=== PATIENT | male | born 1945 | race African-American/Black ===

== ENCOUNTER 2017-01-04 08:00 | Day surgery (SDC) | payer OTHER ==
[2017-01-04] MEDS ORDERED: TETRACAINE 0.5% OPHTH 1 DOSE AFFEYE ONE ×5 (08:32→10:52)
[2017-01-04] MEDS ORDERED: VIGAMOX 0.5% OPHTH 1 DOSE AFFEYE ONE ×5 (08:33→11:08)
[2017-01-04] MEDS ORDERED: PROLENSA OPHTH 1 DOSE AFFEYE ONE (08:44)
[2017-01-04] MEDS ORDERED: ALPHAGAN-P OPHTH 1 DOSE AFFEYE ONE (08:45)
[2017-01-04] MEDS ORDERED: NS 500 ML IV 500 ML IV ONE (08:45)
[2017-01-04] MEDS ORDERED: AK-DILATE 2.5% OPHTH 1 DOSE OP ONE ×5 (08:46→08:50)
[2017-01-04] MEDS ORDERED: CYCLOGYL 1% OPHTH 1 DOSE OP ONE ×5 (08:46→08:50)
[2017-01-04] MEDS ORDERED: MYDRIACIL OPHTH 1 DOSE AFFEYE ONE ×5 (08:46→08:52)
[2017-01-04] MEDS ORDERED: KENALOG INJ 40 MG IM ONE (10:41)
[2017-01-04] MEDS ORDERED: BETADINE OPHTH SOLN 5% EACHEYE ONE (10:42)
[2017-01-04] MEDS ORDERED: ADRENALINE CHL INJ IJ ONE ×3 (10:45→10:52)
[2017-01-04] MEDS ORDERED: XYLOCAINE-MPF 1% IJ ONE ×3 (10:45→10:52)
[2017-01-04] MEDS ORDERED: DUOVISC IO ONE ×3 (10:46→10:52)
[2017-01-04] MEDS ORDERED: BSS OPHTH (PLAIN) 500 ML with VANCOMYCIN HCL 500 MG VIAL 25 MG, ADRENALINE CHL INJ 1 MG IR ONE ×3 (10:46)
[2017-01-04 11:37] VITALS: BP 117/64
== END 2017-01-04 11:30 | disposition home or self-care (01) ==
LOC: SURG1 08:00
PROVIDERS: ATTEND Ophthalmology
PROC: 08DJ3ZZ Extraction of Right Lens, Percutaneous Approach (ICD-10-PCS; principal; 2017-01-04 12:45)
PROC: 08RJ3JZ Replacement of Right Lens with Synthetic Substitute, Percutaneous Approach (ICD-10-PCS; principal; 2017-01-04 12:45)
PROC: 08U007Z Supplement of Right Eye with Autologous Tissue Substitute, Open Approach (ICD-10-PCS; principal; 2017-01-04 12:45)
PROC: 08BSXZX Excision of Right Conjunctiva, External Approach, Diagnostic (ICD-10-PCS; principal; 2017-01-04 12:45)
DX: H11.001 Unspecified pterygium of right eye (principal); H25.11 Age-related nuclear cataract, right eye; H25.011 Cortical age-related cataract, right eye
CPT/HCPCS: 99100; A4217; J0170; J3301; J3370

== ENCOUNTER 2017-01-18 09:03 | Day surgery (SDC) | payer OTHER ==
[2017-01-18] MEDS ORDERED: DUREZOL OPHTH 1 DOSE AFFEYE ONE (09:40)
[2017-01-18] MEDS ORDERED: TETRACAINE 0.5% OPHTH 1 DOSE AFFEYE ONE ×2 (09:41→13:01)
[2017-01-18] MEDS ORDERED: VIGAMOX 0.5% OPHTH 1 DOSE AFFEYE ONE ×5 (09:42→13:22)
[2017-01-18] MEDS ORDERED: NS 500 ML IV 500 ML IV ONE (09:50)
[2017-01-18] MEDS ORDERED: PROLENSA OPHTH 1 DOSE AFFEYE ONE (09:53)
[2017-01-18] MEDS ORDERED: ALPHAGAN-P OPHTH 1 DOSE AFFEYE ONE (09:54)
[2017-01-18] MEDS ORDERED: VISINE-A OPHTH 1 DOSE AFFEYE ONE (09:55)
[2017-01-18] MEDS ORDERED: CYCLOGYL 1% OPHTH 1 DOSE OP ONE ×3 (09:56→10:00)
[2017-01-18] MEDS ORDERED: MYDRIACIL OPHTH 1 DOSE AFFEYE ONE ×3 (09:56→10:00)
[2017-01-18] MEDS ORDERED: AK-DILATE 2.5% OPHTH 1 DOSE OP ONE ×3 (09:56→10:00)
[2017-01-18] MEDS ORDERED: NS 1000 ML 1,000 ML ONE (12:15)
[2017-01-18] MEDS ORDERED: BETADINE OPHTH SOLN 5% EACHEYE ONE (13:01)
[2017-01-18] MEDS ORDERED: XYLOCAINE-MPF 1% IJ ONE (13:08)
[2017-01-18] MEDS ORDERED: DUOVISC IO ONE (13:08)
[2017-01-18] MEDS ORDERED: ADRENALINE CHL INJ IJ ONE (13:08)
[2017-01-18] MEDS ORDERED: BSS OPHTH (PLAIN) 500 ML with VANCOMYCIN HCL 500 MG VIAL 25 MG, ADRENALINE CHL INJ 1 MG IR ONE ×3 (13:08)
[2017-01-18 14:55] VITALS: BP 151/79
[2017-01-18] MEDS ORDERED: DIPRIVAN VIAL ONE (15:38)
== END 2017-01-18 13:45 | disposition home or self-care (01) ==
LOC: SURG1 09:03
PROVIDERS: ATTEND Ophthalmology
PROC: 08RK3JZ Replacement of Left Lens with Synthetic Substitute, Percutaneous Approach (ICD-10-PCS; principal; 2017-01-18 16:30)
PROC: 08DK3ZZ Extraction of Left Lens, Percutaneous Approach (ICD-10-PCS; principal; 2017-01-18 16:30)
DX: H25.12 Age-related nuclear cataract, left eye (principal); H25.012 Cortical age-related cataract, left eye
CPT/HCPCS: 99100; A4217; J0170; J3370; J3490

== ENCOUNTER 2020-02-03 08:24 | Inpatient (IN) ==
[2020-02-03 08:44] VITALS: BMI 25.4
--- NOTE | 2020-02-03 09:34 | DR.ABDMALE ---
HPI Time seen Time Seen by Provider: 02/03/20 09:33 PCP Primary Care Physician: RAUL Complaint Chief Complaint:: PT STATES HE WOKE UP YESTERDAY MORNING WITH ABD PAIN. (C/O PAIN TO MID ABD) PT IS ACTIVELY VOMITTING SMALL AMT OF THICK YELLOW SECRETIONS. COVID-19 Coronavirus risk:travel/contact w/high risk person: No Has patient experienced Coronavirus symptoms: No Mode of arrival Mode of Arrival: Ambulatory Timing Onset of Chief Complaint: 02/02/20 PMH PMH Past Medical History: Yes Past Medical History: CVA Past Surgical History: No Family History History of Family Medical Conditions: Yes Family Medical History: Cancer Social History Does patient currently use any type of tobacco product: Yes Have you used tobacco products in the last 12 months: Yes Type of Tobacco Use: Cigarettes Does any household member use tobacco: No Alcohol Use: None Do you use any recreational Drugs:: No Lives With: Spouse Lives Where: Home Travel Risk Coronavirus risk:travel/contact w/high risk person: No Has patient experienced Coronavirus symptoms: No Infectious screening In the last 2 months have you had wt loss of >10#?: NO Have you had fever, night sweats or hemotysis?: No Have you traveled outside the country in the last 6 months?: No Isolation: Standard PE Vital Signs Vital Signs: Temp Pulse Resp BP Pulse Ox 02/03/20 13:45 117 H 93 L 02/03/20 13:30 121 H 93 L 02/03/20 13:15 118 H 93 L 02/03/20 13:01 118 H 93 L 02/03/20 12:34 154/89 02/03/20 12:00 121/67 02/03/20 11:30 129/64 02/03/20 10:16 18 02/03/20 08:35 98.3 F 110 H 20 125/71 97 01/18/17 13:40 151/79 ROR Labs Reviewed Result Diagrams: 02/03/20 10:05 02/03/20 10:05 Laboratory: WBC 11.6 X10^3/uL (3.6-10.0) H 02/03/20 10:05 RBC 3.83 X10^6/uL (4.7-6.0) L 02/03/20 10:05 Hgb 11.8 g/dL (13.5-18.0) L 02/03/20 10:05 Hct 36.0 % (42.0-54.0) L 02/03/20 10:05 MCV 94.0 fL (80.0-100.0) 02/03/20 10:05 MCH 30.8 pg (27.0-34.0) 02/03/20 10:05 MCHC 32.7 g/dL (33.0-35.0) L 02/03/20 10:05 RDW 14.5 % (11.6-16.5) 02/03/20 10:05 Plt Count 244 X10^3/uL (150.0-450.0) 02/03/20 10:05 MPV 8.3 fL (7.4-11.0) 02/03/20 10:05 Neut % (Auto) 88.3 % (42.0-75.0) H 02/03/20 10:05 Lymph % (Auto) 6.5 % (21.0-51.0) L 02/03/20 10:05 [place] % (Auto) 4.4 % (0.0-13.0) 02/03/20 10:05 Eos % (Auto) 0.5 % (0.9-2.9) L 02/03/20 10:05 Baso % (Auto) 0.3 % (0.2-1.0) 02/03/20 10:05 Neut # (Auto) 10.3 x10^3/uL (2.2-4.8) H 02/03/20 10:05 Lymph # (Auto) 0.8 X10^3/uL (1.3-2.9) L 02/03/20 10:05 [place] # (Auto) 0.5 x10^3/uL (0.3-0.8) 02/03/20 10:05 Eos # (Auto) 0.1 x10^3/uL (0.0-0.2) 02/03/20 10:05 Baso # (Auto) 0.0 X10^3/uL (0.0-0.1) 02/03/20 10:05 Absolute Nucleated RBC 0.0 /100WBC 02/03/20 10:05 Sodium 139 mmol/L (136-145) 02/03/20 10:05 Corrected Sodium 140 mmol/L (136-145) 02/03/20 10:05 Potassium 4.7 mmol/L (3.5-5.1) 02/03/20 10:05 Chloride 105 mmol/L (98-107) 02/03/20 10:05 Carbon Dioxide 25.2 mmol/L (21-32) 02/03/20 10:05 BUN 20 mg/dL (7-18) H 02/03/20 10:05 Creatinine 2.15 mg/dL (0.70-1.30) H 02/03/20 10:05 Est GFR (MDRD) Af Amer 39 (>60) L 02/03/20 10:05 Est GFR (MDRD) Non-Af 32 (>60) L 02/03/20 10:05 Glucose 132 mg/dL (65-99) H 02/03/20 10:05 Calcium 9.0 mg/dL (8.5-10.1) 02/03/20 10:05 Corrected Calcium 9.8 mg/dL (8.5-10.1) 02/03/20 10:05 Total Bilirubin 0.30 mg/dL (0.2-1.0) 02/03/20 10:05 AST 19 Units/L (15-37) 02/03/20 10:05 ALT 14 Units/L (12-78) 02/03/20 10:05 Alkaline Phosphatase 88 Units/L (46-116) 02/03/20 10:05 Total Protein 8.7 g/dL (6.4-8.2) H 02/03/20 10:05 Albumin 3.0 g/dL (3.4-5.0) L 02/03/20 10:05 Globulin 5.7 g/dL (2.5-4.5) H 02/03/20 10:05 Albumin/Globulin Ratio 0.5 Ratio (1.1-2.1) L 02/03/20 10:05 Amylase 101 Units/L (25-115) 02/03/20 10:05 Lipase 76 Units/L (73-393) 02/03/20 10:05 SARS-CoV-2 (PCR) Negative (NEGATIVE) 02/03/20 13:16 Opioid Opioid Risk Tool Age (Iker box if 16-45): No History of Preadolescent Sexual Abuse: No Total: 0 Total Score Risk Category: Low Risk Copyright: Cesar BUCHANAN predicting aberrant behaviors
[2020-02-03] MEDS ORDERED: NS 1000 ML 1,000 ML IV ONE (09:55)
[2020-02-03] MEDS ORDERED: DEMEROL INJ IVP ONE (09:59)
[2020-02-03] MEDS ORDERED: ZOFRAN INJ 4 MG VIAL IVP ONE (09:59)
[2020-02-03] MEDS ORDERED: NS 1000 ML 1,000 ML ONE ×3 (10:06→18:25)
[2020-02-03] MEDS ORDERED: DEMEROL INJ ONE (10:06)
[2020-02-03] MEDS ORDERED: ZOFRAN INJ 4 MG VIAL ONE ×2 (10:06→18:40)
[2020-02-03 10:18] LABS: BASOPHILS % (AUTO) 0.3 % (0.2-1.0); EOSINOPHILS # (AUTO) 0.1 x10^3/uL (0.0-0.2); EOSINOPHILS % (AUTO) 0.5 % (0.9-2.9); HEMOGLOBIN 11.8 g/dL (13.5-18.0); LYMPHOCYTES # (AUTO) 0.8 X10^3/uL (1.3-2.9); LYMPHOCYTES % (AUTO) 6.5 % (21.0-51.0); MEAN CORPUSCULAR HEMOGLOBIN 30.8 pg (27.0-34.0); MEAN CORPUSCULAR HGB CONC 32.7 g/dL (33.0-35.0); MEAN PLATELET VOLUME 8.3 fL (7.4-11.0); MONOCYTES # (AUTO) 0.5 x10^3/uL (0.3-0.8); MONOCYTES % (AUTO) 4.4 % (0.0-13.0); NEUTROPHILS # (AUTO) 10.3 x10^3/uL (2.2-4.8); NEUTROPHILS % (AUTO) 88.3 % (42.0-75.0); PLATELET COUNT 244 X10^3/uL (150.0-450.0); RED BLOOD COUNT 3.83 X10^6/uL (4.7-6.0); RED CELL DISTRIBUTION WIDTH 14.5 % (11.6-16.5); WHITE BLOOD COUNT 11.6 X10^3/uL (3.6-10.0)
[2020-02-03 10:30] LABS: CARBON DIOXIDE 25.2 mmol/L (21-32); COR CA(FOR HYPOALB) 9.8 mg/dL (8.5-10.1); CREATININE 2.15 mg/dL (0.70-1.30); TOTAL PROTEIN 8.7 g/dL (6.4-8.2)
--- NOTE | 2020-02-03 12:45 | CT ---
ABDOMEN/PELVIS W/O CONHISTORY: RLQ abdominal painComparison:NoneTechnique:Multiple non contrast axial images of the abdomen and pelvis were obtained from the lung bases to the pubic symphysis. Oral contrast was given . Dose reduction techniques including Automated Exposure Control (AEC) and adjustment of mA and kV were utlized.Findings:The sensitivity for focal lesion detection within the solid abdominal viscera is diminished without the use of IV contrast.The heart is normal in size. There is no pericardial effusion. Fibrotic appearance of the lung bases.Liver and spleen are normal in size, contour. No focal lesions. No ductal dilitation. Gallbladder present. Gallbladder stone in the gallbladder neck. No evidence of inflammation. The pancreas is unremarkable. Adrenal glands are normal. Kidneys are without hydronephrosis or nephrolithiasis.No bowel obstruction or inflammation. The appendix is dilated up to 10 mm in there is some internal calcification. There is surrounding periappendiceal inflammation. No free air. No abnormal appearing mesenteric or retroperitoneal lymph nodes. . No free fluid or fluid collections.The bladder is normal in appearance. Prostate measures 5.3 cm. No free fluid or abnormal pelvic lymph nodes.No aggressive osseous lesions.IMPRESSION:1. Findings of acute appendicitis without perforation.Electronically signed by: DARWIN NIEVES (Feb 03, 2020 12:44:14)
[2020-02-03] MEDS ORDERED: FLAGYL IV PREMIX 500 MG BAG 500 MG/100 ML BAG IV ONE (14:09)
[2020-02-03] MEDS: FLAGYL IV PREMIX 500 MG BAG 500 MG/100 ML BAG IV SCH ×2 (14:17→21:50)
[2020-02-03] MEDS ORDERED: NS IRRIGATION* 3,000 ML ONE (14:22)
[2020-02-03] MEDS: ZOSYN VIAL 3.375 GRAMS 3.375 G in NS 100 ML IV + SPIKE MINIBAG* 100 ML IV SCH ×2 (16:12→21:51)
[2020-02-03 16:57] LABS: BILIRUBIN,URINE NEGATIVE (NEGATIVE); BLOOD/HEMOGLOBIN,URINE 3+ (NEGATIVE); GLUCOSE, URINE NEGATIVE (NEGATIVE); KETONES,URINE NEGATIVE (NEGATIVE); LEUKOCYTE ESTERASE ,URINE NEGATIVE (NEGATIVE); NITRITES,URINE NEGATIVE (NEGATIVE); PROTEIN,URINE 2+ (NEGATIVE); UROBILINOGEN,URINE NORMAL (NORMAL)
[2020-02-03 17:16] LABS: APPEARANCE,URINE CLEAR (CLEAR); BACTERIA,URINE NEGATIVE /HPF (NEGATIVE); COLOR,URINE YELLOW (YELLOW); RBC,URINE 0-2 /HPF (0-3); SQUAMOUS EPITHELIAL CELL,UR RARE /HPF (NEGATIVE)
--- NOTE | 2020-02-03 18:20 | RAD ---
HISTORYright abdomen painSTUDYCHEST, 1 VIEWCOMPARISONNoneFINDINGSThe trachea is midline. The cardiac silhouette is unremarkable. Bilateral airspace opacities. The bony thorax is unremarkable.IMPRESSIONBilateral airspace opacities which may reflect congestion or pneumonia.Electronically signed by: BLANCA HEBERT (Feb 03, 2020 18:18:18)
[2020-02-03] MEDS ORDERED: FENTANYL INJ 250 mcg ONE (18:23)
[2020-02-03] MEDS ORDERED: NORCURON INJ 10 MG VIAL ONE (18:40)
[2020-02-03] MEDS ORDERED: NEOSTIGMINE INJ ONE (18:40)
[2020-02-03] MEDS ORDERED: LTA KIT LIDOCAINE 4% ONE (18:40)
[2020-02-03] MEDS ORDERED: ROBINUL ONE (18:40)
[2020-02-03] MEDS ORDERED: VERSED ONE (18:40)
[2020-02-03] MEDS ORDERED: AMIDATE INJ 40 MG VIAL ONE (18:40)
[2020-02-03] MEDS ORDERED: XYLOCAINE 2 % (PLAIN) ONE (18:40)
[2020-02-03] MEDS ORDERED: DROPERIDOL ONE (18:40)
[2020-02-03] MEDS ORDERED: DECADRON INJ ONE (18:40)
[2020-02-03] MEDS ORDERED: QUELICIN (OR ANECTINE) ONE (18:40)
[2020-02-03] MEDS ORDERED: BACTROBAN TOPICAL OINT ONE (19:33)
[2020-02-03] MEDS ORDERED: DILAUDID INJ IVP PRN ×2 (20:01→20:16)
[2020-02-03] MEDS ORDERED: ZOFRAN INJ 4 MG VIAL IVP PRN (20:16)
[2020-02-03] MEDS ORDERED: BENADRYL INJ 50 MG VIAL IVP PRN (20:16)
[2020-02-03] MEDS ORDERED: REGLAN INJ 10 MG VIAL IVP PRN (20:16)
[2020-02-03] MEDS ORDERED: PHENERGAN INJ 25 MG IM PRN (20:16)
[2020-02-03] MEDS ORDERED: D5 1/2 NS 1000 ML 1,000 ML IV ONE (20:55)
[2020-02-03] MEDS: D5 1/2 NS 1000 ML 1,000 ML IV SCH (20:57)
[2020-02-03] MEDS: NEURONTIN CAP 100 MG PO SCH (21:50)
[2020-02-03] MEDS: ZESTRIL TAB 20 MG PO SCH (21:50)
[2020-02-03] MEDS: ZOCOR TAB 40 MG PO SCH (21:50)
[2020-02-04] MEDS: ZOFRAN INJ 4 MG VIAL IVP PRN ×2 (02:58→21:29)
[2020-02-04] MEDS: MORPHINE SULFATE INJ 2 MG INJ IVP PRN ×2 (02:59→21:35)
[2020-02-04] MEDS: D5 1/2 NS 1000 ML 1,000 ML IV SCH ×4 (04:30→22:23)
[2020-02-04] MEDS: FLAGYL IV PREMIX 500 MG BAG 500 MG/100 ML BAG IV SCH ×3 (05:01→21:00)
[2020-02-04] MEDS: ZOSYN VIAL 3.375 GRAMS 3.375 G in NS 100 ML IV + SPIKE MINIBAG* 100 ML IV SCH ×3 (05:02→22:37)
[2020-02-04 06:32] LABS: BASOPHILS % (AUTO) 0.2 % (0.2-1.0); EOSINOPHILS # (AUTO) 0.1 x10^3/uL (0.0-0.2); EOSINOPHILS % (AUTO) 0.5 % (0.9-2.9); HEMATOCRIT 32.5 % (42.0-54.0); HEMOGLOBIN 10.8 g/dL (13.5-18.0); LYMPHOCYTES # (AUTO) 0.6 X10^3/uL (1.3-2.9); LYMPHOCYTES % (AUTO) 3.1 % (21.0-51.0); MEAN CORPUSCULAR HEMOGLOBIN 31.2 pg (27.0-34.0); MEAN CORPUSCULAR HGB CONC 33.1 g/dL (33.0-35.0); MEAN CORPUSCULAR VOLUME 94.1 fL (80.0-100.0); MEAN PLATELET VOLUME 7.9 fL (7.4-11.0); MONOCYTES # (AUTO) 0.7 x10^3/uL (0.3-0.8); MONOCYTES % (AUTO) 3.6 % (0.0-13.0); NEUTROPHILS # (AUTO) 17.8 x10^3/uL (2.2-4.8); NEUTROPHILS % (AUTO) 92.6 % (42.0-75.0); PLATELET COUNT 180 X10^3/uL (150.0-450.0); RED BLOOD COUNT 3.46 X10^6/uL (4.7-6.0); RED CELL DISTRIBUTION WIDTH 14.5 % (11.6-16.5); WHITE BLOOD COUNT 19.2 X10^3/uL (3.6-10.0)
[2020-02-04 06:44] LABS: ALBUMIN 2.1 g/dL (3.4-5.0); CALCIUM 7.9 mg/dL (8.5-10.1); CARBON DIOXIDE 18.9 mmol/L (21-32); COR CA(FOR HYPOALB) 9.4 mg/dL (8.5-10.1)
[2020-02-04 07:08] LABS: BAND NEUTROPHILS % 16 % (0-10); PLATELET MORPHOLOGY COMMENT NORMAL (NORMAL)
[2020-02-04] MEDS ORDERED: LOVENOX INJ 30 MG SYR SC SCH (10:00)
[2020-02-04] MEDS: EFFEXOR TAB 75 MG (BID DOSING) PO SCH (10:05)
[2020-02-04] MEDS: NORVASC TAB 5 MG PO SCH (10:05)
[2020-02-04] MEDS: NEURONTIN CAP 100 MG PO SCH ×2 (10:05→22:00)
[2020-02-04] MEDS: PriLOSEC PO SCH (10:06)
[2020-02-04] MEDS: PROTONIX INJ 40 MG VIAL IVP SCH (10:06)
[2020-02-04] MEDS: ZESTRIL TAB 20 MG PO SCH ×2 (10:07→22:23)
--- NOTE | 2020-02-04 11:05 | DR.H&P ---
H&P - History & Physical for Day of: H&P Date: 02/03/20 - Chief Complaint Chief Complaint: ABDOMINAL PAIN, VOMITING, PRODUCTIVE COUGH - History of Present Illness History of Present Illness: IS A 74 YEAR OLD PATIENT OF OURS. HE PRESE NTED TO THE ER WITH COMPLAINTS OF MID AND RLQ ABDOMINAL PAIN, VOMITING, AND A PRODUCTIVE COUGH. ABDOMINAL PAIN IS DESCRIBED SHARP AND IS CURRENTLY RATED A 7/10. HE REPORTS VOMITING 3-4 TIMES SINCE ONE DAY PRIOR. COUGH HAS BEEN PRESENT FOR THE PAST 2-3 DAYS. HIS PMH INCLUDES CVA WITH SPEECH AND DEFICIT, HYPERLIPIDEMIA, DEPRESSION, GERD, AND HYPERTENSION. ON ARRIVAL TO THE ER, VITALS WERE 98.3-110-20-97%-125/71. LABS WERE OBTAINED. ABNORMAL LAB VALUES INCLUDE THE FOLLOWING: WBC 11.6, RBC 3.83, HGB 11.8, HCT 36.0, BUN 20, CREATININE 2.15, GLUCOSE 132, TOTAL PROTEIN 8.7, ALBUMIN 3.0, GLOBULIN 5.7. URINALYSIS REVEALED: WBC 0-2, RBC 0-2, OCCULT BLOOD 3+, URINE PROTEIN 2+, BACTERIA NEGATIVE, LEUKOCYTES NEGATIVE. AN ABDOMEN/PELVIS CT WITHOUT CONTRAST WAS OBTAINED AND REVEALED: 1. Findings of acute appendicitis without perforation. A CHEST XRAY WAS OBTAINED AND REVEALED: Bilateral airspace opacities which may reflect congestion or pneumonia. EKG REVEALED: SINUS TACHYCARDIA WITH HR 114. HE WAS GIVEN ZOFRAN 4MG IV X 1, DEMEROL 25MG IV X 1, AND A NORMAL SALINE BOLUS IN THE ER. HE REPORTED ONLY MILD IMPROVEMENT IN SYMPTOMS. , GENERAL SURGERY, WAS CONSULTED. HE PLANNED TO TAKE PATIENT TO THE OR FOR DIAGNOSTIC LAPAROSCOPY AND APPENDECTOMY. WE AGREE WITH PLANS. PATIENT IS MEDICALLY STABLE AND CLEAR FOR SURGERY. HE WILL BE STARTED ON D5 1/2NS AT 150 ML/HR, LOVENOX 30MG SC DAILY AFT ER SURGERY, FLAGYL 500MG IV Q8H, ZOSYN 3.375G IV TID, DILAUDID 1MG IV Q4H PRN PAIN, MORPHINE 2MG IV Q4H PRN PAIN, ZOFRAN 4MG IV Q8H PRN NAUSEA, PROTONIX 40MG IV DAILY, AND HIS HOME MEDICATIONS OF NORVASC, NEURONTIN, ZESTRIL, PRILOSEC, AND ZOCOR WERE RESUMED. OTHERWISE, WE PLAN TO FOLLOW UP WITH AM LABS AND CONTINUE TO MONITOR. - Past Medical History Past Medical History: CVA, Dyslipidemia, GERD, Hypertension - Family History Family Medical History: Hypertension - Social History Does patient currently use any type of tobacco product: Yes Have you used tobacco products in the last 12 months: Yes Type of Tobacco Use: Cigars Does any household member use tobacco: No Alcohol Use: Other Drug Use: None - Medications Home Medications: No Known Drug Allergies Allergy (Verified 02/03/20 14:02) - Review of Systems Constitutional: Weakness Eyes: No Symptoms Reported ENT: No Symptoms Reported Respiratory: Cough, Shortness of Breath Cardiovascular: No Symptoms Reported Gastrointestinal: Vomiting, Abdominal Pain Genitourinary: No Symptoms Reported Musculoskeletal: No Symptoms Reported Skin: No Symptoms Reported Neurological: Weakness - Physical Exam Vital Signs: Temperature 98.5 F Pulse Rate [Right Brachial] 82 Pulse Rate 103 Respiratory Rate 20 Blood Pressure [Right Arm] 98/57 Blood Pressure 98/59 O2 Sat by Pulse Oximetry 95 Oriented: Normal Eyes: Normal Ear: Normal Nose: Normal Throat: Normal Respiratory: Diminished Throughout Cardiovascular: Normal : Normal Auscultation: Bowel Sounds: Normal Palpation: Normal Tenderness: RLQ, Moderate, Rebound, Guarding Skin: Normal Musculoskeletal: Normal Psychiatric: Normal Mood Description: Calm Affect: Normal Speech Pattern: Clear - Assessment/Plan (1) Acute appendicitis Qualifiers: Acute appendicitis type: unspecified acute appendicitis type Qualified Code(s): K35.80 - Unspecified acute appendicitis Status: Acute Plan: ADMIT, SURGICAL CONSULT, D5 1/2NS AT 150 ML/HR, LOVENOX 30MG SC DAILY AFTER SURGERY, FLAGYL 500MG IV Q8H, ZOSYN 3.375G IV TID, DILAUDID 1MG IV Q4H PRN PAIN, MORPHINE 2MG IV Q4H PRN PAIN, ZOFRAN 4MG IV Q8H PRN NAUSEA, PROTONIX 40MG IV DAILY, AND HIS HOME MEDICATIONS OF NORVASC, NEURONTIN, ZESTRIL, PRILOSEC, AND ZOCOR WERE RESUMED. (2) Pneumonia Qualifiers: Pneumonia type: due to unspecified organism Laterality: bilateral Lung location: unspecified part of lung Qualified Code(s): J18.9 - Pneumonia, unspecified organism Status: Acute - Allergies Allergies/Adverse Reactions: Allergies Allergy/AdvReac Type Severity Reaction Status Date / Time No Known Drug Allergies Allergy Verified 02/03/20 14:02
--- NOTE | 2020-02-04 14:33 | DR.PROGNOT ---
Hospital Progress Notes - Progress Note for Day of: Progress Note Date: 02/04/20 - Chief Complaint Chief Complaint: doing fairly well . alert with less pain .. no nausea or vomiting . WBC 19,2. hgb 10.8. BUN/Creat 20/2. temp 98.2 - Past Medical Family Social History Past Med/Fam/Surg Hx: No changes since H&P Allergies: Allergies No Known Drug Allergies Allergy (Verified 02/03/20 14:02) - Review Of Systems ROS: No change since H&P - Vital Signs Vital Signs: Temperature 98.6 F Pulse Rate [Right Brachial] 76 Pulse Rate 103 Respiratory Rate 20 Blood Pressure [Right Arm] 106/56 Blood Pressure 98/59 O2 Sat by Pulse Oximetry 96 - Physical Exam Oriented: Normal Eyes: Normal Ear: Normal Nose: Normal Throat: Normal Cardiovascular: Normal : Normal GI:Auscultation: Decreased GI:Palpation: Normal GI: Tenderness: Diffuse (soft, full abdomen with diffuse tenderness . BS hypoactive ), RLQ, Moderate, Rebound Skin: Normal Musculoskeletal: Normal Psychiatric: Normal Mood Description: Calm Affect: Normal Speech Pattern: Clear - Laboratory and Diagnostics Result Diagrams: 02/04/20 06:10 02/04/20 06:10 Labs: Laboratory WBC 19.2 X10^3/uL (3.6-10.0) H 02/04/20 06:10 RBC 3.46 X10^6/uL (4.7-6.0) L 02/04/20 06:10 Hgb 10.8 g/dL (13.5-18.0) L 02/04/20 06:10 Hct 32.5 % (42.0-54.0) L 02/04/20 06:10 MCV 94.1 fL (80.0-100.0) 02/04/20 06:10 MCH 31.2 pg (27.0-34.0) 02/04/20 06:10 MCHC 33.1 g/dL (33.0-35.0) 02/04/20 06:10 RDW 14.5 % (11.6-16.5) 02/04/20 06:10 Plt Count 180 X10^3/uL (150.0-450.0) 02/04/20 06:10 Plt Count Comment Adequate (ADEQUATE) 02/04/20 06:10 MPV 7.9 fL (7.4-11.0) 02/04/20 06:10 Neut % (Auto) 92.6 % (42.0-75.0) H 02/04/20 06:10 Lymph % (Auto) 3.1 % (21.0-51.0) L 02/04/20 06:10 [place] % (Auto) 3.6 % (0.0-13.0) 02/04/20 06:10 Eos % (Auto) 0.5 % (0.9-2.9) L 02/04/20 06:10 Baso % (Auto) 0.2 % (0.2-1.0) 02/04/20 06:10 Neut # (Auto) 17.8 x10^3/uL (2.2-4.8) H 02/04/20 06:10 Lymph # (Auto) 0.6 X10^3/uL (1.3-2.9) L 02/04/20 06:10 [place] # (Auto) 0.7 x10^3/uL (0.3-0.8) 02/04/20 06:10 Eos # (Auto) 0.1 x10^3/uL (0.0-0.2) 02/04/20 06:10 Baso # (Auto) 0.0 X10^3/uL (0.0-0.1) 02/04/20 06:10 Absolute Nucleated RBC 0.0 /100WBC 02/04/20 06:10 Total Counted 100 02/04/20 06:10 Neutrophils % (Manual) 71 % (39-76) 02/04/20 06:10 Band Neutrophils % 16 % (0-10) H 02/04/20 06:10 Lymphocytes % (Manual) 7 % (13-43) L 02/04/20 06:10 Monocytes % (Manual) 6 % (4-9) 02/04/20 06:10 Plt Morphology Comment Normal (NORMAL) 02/04/20 06:10 RBC Morphology Normal (NORMAL) 02/04/20 06:10 Sodium 138 mmol/L (136-145) 02/04/20 06:10 Corrected Sodium 139 mmol/L (136-145) 02/04/20 06:10 Potassium 4.2 mmol/L (3.5-5.1) 02/04/20 06:10 Chloride 107 mmol/L (98-107) 02/04/20 06:10 Carbon Dioxide 18.9 mmol/L (21-32) L 02/04/20 06:10 BUN 20 mg/dL (7-18) H 02/04/20 06:10 Creatinine 2.00 mg/dL (0.70-1.30) H 02/04/20 06:10 Est GFR (MDRD) Af Amer 42 (>60) L 02/04/20 06:10 Est GFR (MDRD) Non-Af 35 (>60) L 02/04/20 06:10 Glucose 141 mg/dL (65-99) H 02/04/20 06:10 Calcium 7.9 mg/dL (8.5-10.1) L 02/04/20 06:10 Corrected Calcium 9.4 mg/dL (8.5-10.1) 02/04/20 06:10 Total Bilirubin 0.30 mg/dL (0.2-1.0) 02/04/20 06:10 AST 33 Units/L (15-37) 02/04/20 06:10 ALT 9 Units/L (12-78) L 02/04/20 06:10 Alkaline Phosphatase 40 Units/L (46-116) L 02/04/20 06:10 Total Protein 7.0 g/dL (6.4-8.2) 02/04/20 06:10 Albumin 2.1 g/dL (3.4-5.0) L 02/04/20 06:10 Globulin 4.9 g/dL (2.5-4.5) H 02/04/20 06:10 Albumin/Globulin Ratio 0.4 Ratio (1.1-2.1) L 02/04/20 06:10 Amylase 101 Units/L (25-115) 02/03/20 10:05 Lipase 76 Units/L (73-393) 02/03/20 10:05 Specimen Type Clean catch urine 02/03/20 16:45 Urine Color Yellow (YELLOW) 02/03/20 16:45 Urine Appearance Clear (CLEAR) 02/03/20 16:45 Urine pH 5.0 (5.0 - 8.0) 02/03/20 16:45 Ur Specific [place] 1.015 (1.000-1.030) 02/03/20 16:45 Urine Protein 2+ (NEGATIVE) 02/03/20 16:45 Urine Glucose (UA) Negative (NEGATIVE) 02/03/20 16:45 Urine Ketones Negative (NEGATIVE) 02/03/20 16:45 Urine Occult Blood 3+ (NEGATIVE) 02/03/20 16:45 Urine Nitrite Negative (NEGATIVE) 02/03/20 16:45 Urine Bilirubin Negative (NEGATIVE) 02/03/20 16:45 Urine Urobilinogen Normal (NORMAL) 02/03/20 16:45 Ur Leukocyte Esterase Negative (NEGATIVE) 02/03/20 16:45 Urine RBC 0-2 /HPF (0-3) 02/03/20 16:45 Urine WBC 0-2 /HPF (0-5) 02/03/20 16:45 Ur Squamous Epith Cells Rare /HPF (NEGATIVE) 02/03/20 16:45 Urine Bacteria Negative /HPF (NEGATIVE) 02/03/20 16:45 Ur Culture Indicated? No/not indicated 02/03/20 16:45 SARS-CoV-2 (PCR) Negative (NEGATIVE) 02/03/20 13:16 Tissue Pathology To follow 02/03/20 19:30 - Assessment and Plan 1: [facility] Op lp appendectomy for perforated appendicitis with peritonitis . CKD .HTN . old CVA. same IV ATB .DVT prophylaxis. d/c jimenez and NGT . clear liquid today . OOB . - Problem Patient Problems: Patient Problems Acute appendicitis (Acute) K35.80 Pneumonia (Acute) J18.9
[2020-02-04] MEDS: ZOCOR TAB 40 MG PO SCH (22:00)
[2020-02-05] MEDS: D5 1/2 NS 1000 ML 1,000 ML IV SCH ×4 (04:15→20:22)
[2020-02-05] MEDS: FLAGYL IV PREMIX 500 MG BAG 500 MG/100 ML BAG IV SCH ×3 (05:33→21:00)
[2020-02-05] MEDS: ZOFRAN INJ 4 MG VIAL IVP PRN ×2 (05:33→20:42)
[2020-02-05] MEDS: MORPHINE SULFATE INJ 2 MG INJ IVP PRN (05:33)
--- NOTE | 2020-02-05 06:14 | RAD ---
HISTORYShortness of breathSTUDYChest AP [id number]/2020FINDINGSThe lungs are slightly less well inflated compared with the prior examination. This accentuates the heart size. It is likely upper limits normal. No congestive heart failure is noted. The aleah are normal. Bibasilar lung infiltrates are unchanged. No pleural effusions are identified. Bony thorax is unremarkable.IMPRESSIONNo change bibasilar lung infiltratesElectronically signed by: BLANCA HEBERT (Feb 05, 2020 06:13:00)
[2020-02-05] MEDS: ZOSYN VIAL 3.375 GRAMS 3.375 G in NS 100 ML IV + SPIKE MINIBAG* 100 ML IV SCH ×3 (06:16→22:00)
[2020-02-05 06:18] LABS: BASOPHILS % (AUTO) 0.1 % (0.2-1.0); HEMATOCRIT 34.8 % (42.0-54.0); HEMOGLOBIN 11.6 g/dL (13.5-18.0); LYMPHOCYTES # (AUTO) 0.5 X10^3/uL (1.3-2.9); LYMPHOCYTES % (AUTO) 2.8 % (21.0-51.0); MEAN CORPUSCULAR HGB CONC 33.4 g/dL (33.0-35.0); MEAN PLATELET VOLUME 8.2 fL (7.4-11.0); MONOCYTES # (AUTO) 0.3 x10^3/uL (0.3-0.8); MONOCYTES % (AUTO) 1.8 % (0.0-13.0); NEUTROPHILS # (AUTO) 17.6 x10^3/uL (2.2-4.8); NEUTROPHILS % (AUTO) 95.3 % (42.0-75.0); PLATELET COUNT 200 X10^3/uL (150.0-450.0); RED BLOOD COUNT 3.75 X10^6/uL (4.7-6.0); RED CELL DISTRIBUTION WIDTH 14.7 % (11.6-16.5); WHITE BLOOD COUNT 18.5 X10^3/uL (3.6-10.0)
[2020-02-05 06:33] LABS: ALBUMIN 2.1 g/dL (3.4-5.0); CALCIUM 7.9 mg/dL (8.5-10.1); CARBON DIOXIDE 22.2 mmol/L (21-32); COR CA(FOR HYPOALB) 9.4 mg/dL (8.5-10.1); CREATININE 1.72 mg/dL (0.70-1.30); TOTAL PROTEIN 7.5 g/dL (6.4-8.2)
[2020-02-05 06:56] LABS: BAND NEUTROPHILS % 5 % (0-10); PLATELET MORPHOLOGY COMMENT NORMAL (NORMAL)
[2020-02-05] MEDS: EFFEXOR TAB 75 MG (BID DOSING) PO SCH (08:29)
[2020-02-05] MEDS: PROTONIX INJ 40 MG VIAL IVP SCH (08:29)
[2020-02-05] MEDS: NEURONTIN CAP 100 MG PO SCH ×2 (08:31→23:26)
[2020-02-05] MEDS: NORVASC TAB 5 MG PO SCH (08:31)
[2020-02-05] MEDS: PriLOSEC PO SCH (08:31)
[2020-02-05] MEDS ORDERED: ZESTRIL TAB 20 MG ONE (08:32)
[2020-02-05] MEDS: ZESTRIL TAB 20 MG PO SCH ×2 (08:33→23:26)
[2020-02-05] MEDS: LOVENOX INJ 40 MG SYR SC SCH (08:34)
--- NOTE | 2020-02-05 10:14 | DR.PROGNOT ---
Hospital Progress Notes - Progress Note for Day of: Progress Note Date: 02/05/20 - Chief Complaint Chief Complaint: Post op day 2. vomited small amount this am . having moderate abdominal distention . nobowel movement yet . alert , no distress . WBC 18.5 . K 3.3. tempo 99.1 - Past Medical Family Social History Past Med/Fam/Surg Hx: No changes since H&P Allergies: Allergies No Known Drug Allergies Allergy (Verified 02/03/20 14:02) - Review Of Systems ROS: No change since H&P - Vital Signs Vital Signs: Temperature 98.3 F Pulse Rate [Left Brachial] 91 Pulse Rate [Right Brachial] 76 Pulse Rate 103 Respiratory Rate 18 Blood Pressure [Left Arm] 105/64 Blood Pressure [Right Arm] 106/56 Blood Pressure 98/59 O2 Sat by Pulse Oximetry 98 - Physical Exam Oriented: Normal Eyes: Normal Ear: Normal Nose: Normal Throat: Normal Cardiovascular: Normal : Normal GI:Auscultation: Decreased GI:Palpation: Other (distended abdomen with hypoactive BS .only mild tenderness ) GI: Tenderness: Diffuse (soft, full abdomen with diffuse tenderness . BS hypoactive ), RLQ, Moderate, Rebound Skin: Normal Musculoskeletal: Normal Psychiatric: Normal Mood Description: Calm Affect: Normal Speech Pattern: Clear, Appropriate - Laboratory and Diagnostics Result Diagrams: 02/05/20 05:39 02/05/20 05:39 Labs: Laboratory WBC 18.5 X10^3/uL (3.6-10.0) H 02/05/20 05:39 RBC 3.75 X10^6/uL (4.7-6.0) L 02/05/20 05:39 Hgb 11.6 g/dL (13.5-18.0) L 02/05/20 05:39 Hct 34.8 % (42.0-54.0) L 02/05/20 05:39 MCV 93.0 fL (80.0-100.0) 02/05/20 05:39 MCH 31.0 pg (27.0-34.0) 02/05/20 05:39 MCHC 33.4 g/dL (33.0-35.0) 02/05/20 05:39 RDW 14.7 % (11.6-16.5) 02/05/20 05:39 Plt Count 200 X10^3/uL (150.0-450.0) 02/05/20 05:39 Plt Count Comment Adequate (ADEQUATE) 02/05/20 05:39 MPV 8.2 fL (7.4-11.0) 02/05/20 05:39 Neut % (Auto) 95.3 % (42.0-75.0) H 02/05/20 05:39 Lymph % (Auto) 2.8 % (21.0-51.0) L 02/05/20 05:39 [place] % (Auto) 1.8 % (0.0-13.0) 02/05/20 05:39 Eos % (Auto) 0.0 % (0.9-2.9) L 02/05/20 05:39 Baso % (Auto) 0.1 % (0.2-1.0) L 02/05/20 05:39 Neut # (Auto) 17.6 x10^3/uL (2.2-4.8) H 02/05/20 05:39 Lymph # (Auto) 0.5 X10^3/uL (1.3-2.9) L 02/05/20 05:39 [place] # (Auto) 0.3 x10^3/uL (0.3-0.8) 02/05/20 05:39 Eos # (Auto) 0.0 x10^3/uL (0.0-0.2) 02/05/20 05:39 Baso # (Auto) 0.0 X10^3/uL (0.0-0.1) 02/05/20 05:39 Absolute Nucleated RBC 0.0 /100WBC 02/05/20 05:39 Total Counted 100 02/05/20 05:39 Neutrophils % (Manual) 93 % (39-76) H 02/05/20 05:39 Band Neutrophils % 5 % (0-10) 02/05/20 05:39 Lymphocytes % (Manual) 2 % (13-43) L 02/05/20 05:39 Monocytes % (Manual) 6 % (4-9) 02/04/20 06:10 Plt Morphology Comment Normal (NORMAL) 02/05/20 05:39 RBC Morphology Normal (NORMAL) 02/05/20 05:39 Sodium 137 mmol/L (136-145) 02/05/20 05:39 Corrected Sodium 137 mmol/L (136-145) 02/05/20 05:39 Potassium 3.3 mmol/L (3.5-5.1) L 02/05/20 05:39 Chloride 104 mmol/L (98-107) 02/05/20 05:39 Carbon Dioxide 22.2 mmol/L (21-32) 02/05/20 05:39 BUN 16 mg/dL (7-18) 02/05/20 05:39 Creatinine 1.72 mg/dL (0.70-1.30) H 02/05/20 05:39 Est GFR (MDRD) Af Amer 50 (>60) L 02/05/20 05:39 Est GFR (MDRD) Non-Af 42 (>60) L 02/05/20 05:39 Glucose 118 mg/dL (65-99) H 02/05/20 05:39 Calcium 7.9 mg/dL (8.5-10.1) L 02/05/20 05:39 Corrected Calcium 9.4 mg/dL (8.5-10.1) 02/05/20 05:39 Magnesium 1.3 mg/dL (1.7-2.9) L 02/05/20 05:39 Total Bilirubin 0.30 mg/dL (0.2-1.0) 02/05/20 05:39 AST 40 Units/L (15-37) H 02/05/20 05:39 ALT 13 Units/L (12-78) 02/05/20 05:39 Alkaline Phosphatase 51 Units/L (46-116) 02/05/20 05:39 Total Protein 7.5 g/dL (6.4-8.2) 02/05/20 05:39 Albumin 2.1 g/dL (3.4-5.0) L 02/05/20 05:39 Globulin 5.4 g/dL (2.5-4.5) H 02/05/20 05:39 Albumin/Globulin Ratio 0.4 Ratio (1.1-2.1) L 02/05/20 05:39 Amylase 101 Units/L (25-115) 02/03/20 10:05 Lipase 76 Units/L (73-393) 02/03/20 10:05 Specimen Type Clean catch urine 02/03/20 16:45 Urine Color Yellow (YELLOW) 02/03/20 16:45 Urine Appearance Clear (CLEAR) 02/03/20 16:45 Urine pH 5.0 (5.0 - 8.0) 02/03/20 16:45 Ur Specific [place] 1.015 (1.000-1.030) 02/03/20 16:45 Urine Protein 2+ (NEGATIVE) 02/03/20 16:45 Urine Glucose (UA) Negative (NEGATIVE) 02/03/20 16:45 Urine Ketones Negative (NEGATIVE) 02/03/20 16:45 Urine Occult Blood 3+ (NEGATIVE) 02/03/20 16:45 Urine Nitrite Negative (NEGATIVE) 02/03/20 16:45 Urine Bilirubin Negative (NEGATIVE) 02/03/20 16:45 Urine Urobilinogen Normal (NORMAL) 02/03/20 16:45 Ur Leukocyte Esterase Negative (NEGATIVE) 02/03/20 16:45 Urine RBC 0-2 /HPF (0-3) 02/03/20 16:45 Urine WBC 0-2 /HPF (0-5) 02/03/20 16:45 Ur Squamous Epith Cells Rare /HPF (NEGATIVE) 02/03/20 16:45 Urine Bacteria Negative /HPF (NEGATIVE) 02/03/20 16:45 Ur Culture Indicated? No/not indicated 02/03/20 16:45 SARS-CoV-2 (PCR) Negative (NEGATIVE) 02/03/20 13:16 Tissue Pathology To follow 02/03/20 19:30 - Assessment and Plan 1: [facility] Op lap appendectomy for perforated appendicitis with peritonitis . moderate ileus. CKD .HTN . old CVA. same IV ATB .DVT prophylaxis. clear liquid today . OOB . - Problem Patient Problems: Patient Problems Acute appendicitis (Acute) K35.80 Pneumonia (Acute) J18.9
[2020-02-05] MEDS: PEPCID 20 MG IV PREMIX* 20 MG/50 ML BAG IV SCH (10:58)
[2020-02-05 11:07] LABS: ABG ALLEN TEST POS; ABG BASE EXCESS -3.5 mmol/L (-2.0-2.0); ABG HCO3 20.1 mmol/L (22-26)
[2020-02-05] MEDS ORDERED: K-DUR TAB 20 MEQ PO ONE ×2 (13:56→16:00)
[2020-02-05] MEDS ORDERED: MAGNESIUM SULFATE 1 GRAM/100 mL PREMIX 1 G/100 ML BAG IV ONE (13:56)
--- NOTE | 2020-02-05 14:05 | PCM.PROG ---
Progress Note - Progress Note for Day of Date of Exam: 02/04/20 - Subjective Subjective: WAS ADMITTED FOR PNAUMONIA AND ACUTE APPENDICITIS. HE IS DAY 1 STATUS POST LAPROSCOPIC APPENDECTOMY. STATED IN HIS OPERATIVE REPORT THAT PATIENT ALSO HAD AN ILEUS WITH PERITONITIS. HE CONTINUES WITH COMPLAINTS OF SHORTNESS OF BREATH AND ABDOMINAL PAIN TODAY. ON EXAMINATION, NG TUBE NOTED TO LOW INTERMITTENT SUCTION. HEART IS REGULAR IN RATE AND RHYTHM. BILATERAL LUNGS ARE NOTED WITH DIMINISHED LUNG SOUNDS THROUGHOUT. ABDOMEN IS NOTED WITH SURGICAL DRESSINGS AND A RACHEL DRAIN. SMALL AMOUNT OF BLOODY DRAINAGE NOTED IN DRAIN THIS MORNING. WYNNE CATHETER NOTED TO BEDSIDE DRAINAGE. HIS VITALS THIS MORNING ARE: 98.5-20-95%-82-98/57. LABS WERE OBTAINED. ABNORMAL LAB VALUES INCLUDE THE FOLLOWING: WBC 19.2, RBC 3.46, HGB 10.8, HCT 32.5, CARBON DIOXIDE 18.9, BUN 20, CREATININE 2.00, GLUCOSE 141, CALCIUM 7.9, ALT 9, ALK PHOS 40, ALBUMIN 2.1, GLOBULIN 4.9. BLOOD CULTURES ARE PENDING. HE IS CURRENTLY RECEIVING D5 1/2NS AT 150 ML/HR, LOVENOX 30MG SC DAILY AFTER SURGERY, FLAGYL 500MG IV Q8H, ZOSYN 3.375G IV TID, DILAUDID 1MG IV Q4H PRN PAIN, MORPHINE 2MG IV Q4H PRN PAIN, ZOFRAN 4MG IV Q8H PRN NAUSEA, PROTONIX 40MG IV DAILY, AND HIS HOME MEDICATIONS OF NORVASC, NEURONTIN, ZESTRIL, PRILOSEC, AND ZOCOR WERE RESUMED. WILL CONTINUE TO MONITOR PATIENT. WE WILL HAVE PHYSICAL AND OCCUPATIONAL THERAPIES WORK WITH PATIENT TODAY. OTHERWISE, WE WILL FOLLOW UP WITH AM LABS AND CONTINUE TO MONITOR. - Past Medical Family Social History Past Med/Fam/Surg Hx: No changes since H&P Allergies: Allergies No Known Drug Allergies Allergy (Verified 02/03/20 14:02) - Review of Systems ROS: No change since H&P - Vital Signs and I&O's Vital Signs: Temperature 98.3 F Pulse Rate [Left Brachial] 91 Pulse Rate [Right Brachial] 76 Pulse Rate 103 Respiratory Rate 18 Blood Pressure [Left Arm] 105/64 Blood Pressure [Right Arm] 106/56 Blood Pressure 98/59 O2 Sat by Pulse Oximetry 98 Intake and Output: Intake & Output 02/03/20 02/04/20 02/05/20 02/06/20 11:59 11:59 11:59 11:59 Intake Total 5545 / 5545 2079 / 0 Output Total 4029 / 4029 1125 / 1125 Balance 1516 / 1516 955 / 955 - Physical Exam Oriented: Normal Eyes: Normal Ear: Normal Nose: Normal Throat: Normal Respiratory: Diminished Cardiovascular: Normal : Normal Auscultation: Bowel Sounds: Decreased Palpation: Normal Tenderness: Diffuse (soft, full abdomen with diffuse tenderness . BS hypoactive ), Mild Skin: Normal Musculoskeletal: Normal Psychiatric: Normal Mood Description: Calm Affect: Normal Speech Pattern: Clear, Appropriate - Laboratory and Diagnostics Result Diagrams: 02/05/20 05:39 02/05/20 05:39 Labs: Laboratory WBC 18.5 X10^3/uL (3.6-10.0) H 02/05/20 05:39 RBC 3.75 X10^6/uL (4.7-6.0) L 02/05/20 05:39 Hgb 11.6 g/dL (13.5-18.0) L 02/05/20 05:39 Hct 34.8 % (42.0-54.0) L 02/05/20 05:39 MCV 93.0 fL (80.0-100.0) 02/05/20 05:39 MCH 31.0 pg (27.0-34.0) 02/05/20 05:39 MCHC 33.4 g/dL (33.0-35.0) 02/05/20 05:39 RDW 14.7 % (11.6-16.5) 02/05/20 05:39 Plt Count 200 X10^3/uL (150.0-450.0) 02/05/20 05:39 Plt Count Comment Adequate (ADEQUATE) 02/05/20 05:39 MPV 8.2 fL (7.4-11.0) 02/05/20 05:39 Neut % (Auto) 95.3 % (42.0-75.0) H 02/05/20 05:39 Lymph % (Auto) 2.8 % (21.0-51.0) L 02/05/20 05:39 [place] % (Auto) 1.8 % (0.0-13.0) 02/05/20 05:39 Eos % (Auto) 0.0 % (0.9-2.9) L 02/05/20 05:39 Baso % (Auto) 0.1 % (0.2-1.0) L 02/05/20 05:39 Neut # (Auto) 17.6 x10^3/uL (2.2-4.8) H 02/05/20 05:39 Lymph # (Auto) 0.5 X10^3/uL (1.3-2.9) L 02/05/20 05:39 [place] # (Auto) 0.3 x10^3/uL (0.3-0.8) 02/05/20 05:39 Eos # (Auto) 0.0 x10^3/uL (0.0-0.2) 02/05/20 05:39 Baso # (Auto) 0.0 X10^3/uL (0.0-0.1) 02/05/20 05:39 Absolute Nucleated RBC 0.0 /100WBC 02/05/20 05:39 Total Counted 100 02/05/20 05:39 Neutrophils % (Manual) 93 % (39-76) H 02/05/20 05:39 Band Neutrophils % 5 % (0-10) 02/05/20 05:39 Lymphocytes % (Manual) 2 % (13-43) L 02/05/20 05:39 Monocytes % (Manual) 6 % (4-9) 02/04/20 06:10 Plt Morphology Comment Normal (NORMAL) 02/05/20 05:39 RBC Morphology Normal (NORMAL) 02/05/20 05:39 Sample Site Left radial 02/05/20 10:57 ABG pH 7.420 (7.35-7.45) 02/05/20 10:57 ABG pCO2 31.0 mmHg (35.0-45.0) L 02/05/20 10:57 ABG pO2 60.0 mmHg (80.0-100.0) L 02/05/20 10:57 ABG HCO3 20.1 mmol/L (22-26) L 02/05/20 10:57 ABG O2 Saturation 91.0 % (90-100) 02/05/20 10:57 ABG Base Excess -3.5 mmol/L (-2.0-2.0) L 02/05/20 10:57 Greg Test Pos 02/05/20 10:57 A-a Gradient 51.0 mmHg 02/05/20 10:57 FiO2 21.0 02/05/20 10:57 Blood Gas Comments Yoan well cb 02/05/20 10:57 Sodium 137 mmol/L (136-145) 02/05/20 05:39 Corrected Sodium 137 mmol/L (136-145) 02/05/20 05:39 Potassium 3.3 mmol/L (3.5-5.1) L 02/05/20 05:39 Chloride 104 mmol/L (98-107) 02/05/20 05:39 Carbon Dioxide 22.2 mmol/L (21-32) 02/05/20 05:39 BUN 16 mg/dL (7-18) 02/05/20 05:39 Creatinine 1.72 mg/dL (0.70-1.30) H 02/05/20 05:39 Est GFR (MDRD) Af Amer 50 (>60) L 02/05/20 05:39 Est GFR (MDRD) Non-Af 42 (>60) L 02/05/20 05:39 Glucose 118 mg/dL (65-99) H 02/05/20 05:39 Calcium 7.9 mg/dL (8.5-10.1) L 02/05/20 05:39 Corrected Calcium 9.4 mg/dL (8.5-10.1) 02/05/20 05:39 Magnesium 1.3 mg/dL (1.7-2.9) L 02/05/20 05:39 Total Bilirubin 0.30 mg/dL (0.2-1.0) 02/05/20 05:39 AST 40 Units/L (15-37) H 02/05/20 05:39 ALT 13 Units/L (12-78) 02/05/20 05:39 Alkaline Phosphatase 51 Units/L (46-116) 02/05/20 05:39 Total Protein 7.5 g/dL (6.4-8.2) 02/05/20 05:39 Albumin 2.1 g/dL (3.4-5.0) L 02/05/20 05:39 Globulin 5.4 g/dL (2.5-4.5) H 02/05/20 05:39 Albumin/Globulin Ratio 0.4 Ratio (1.1-2.1) L 02/05/20 05:39 Amylase 101 Units/L (25-115) 02/03/20 10:05 Lipase 76 Units/L (73-393) 02/03/20 10:05 Specimen Type Clean catch urine 02/03/20 16:45 Urine Color Yellow (YELLOW) 02/03/20 16:45 Urine Appearance Clear (CLEAR) 02/03/20 16:45 Urine pH 5.0 (5.0 - 8.0) 02/03/20 16:45 Ur Specific [place] 1.015 (1.000-1.030) 02/03/20 16:45 Urine Protein 2+ (NEGATIVE) 02/03/20 16:45 Urine Glucose (UA) Negative (NEGATIVE) 02/03/20 16:45 Urine Ketones Negative (NEGATIVE) 02/03/20 16:45 Urine Occult Blood 3+ (NEGATIVE) 02/03/20 16:45 Urine Nitrite Negative (NEGATIVE) 02/03/20 16:45 Urine Bilirubin Negative (NEGATIVE) 02/03/20 16:45 Urine Urobilinogen Normal (NORMAL) 02/03/20 16:45 Ur Leukocyte Esterase Negative (NEGATIVE) 02/03/20 16:45 Urine RBC 0-2 /HPF (0-3) 02/03/20 16:45 Urine WBC 0-2 /HPF (0-5) 02/03/20 16:45 Ur Squamous Epith Cells Rare /HPF (NEGATIVE) 02/03/20 16:45 Urine Bacteria Negative /HPF (NEGATIVE) 02/03/20 16:45 Ur Culture Indicated? No/not indicated 02/03/20 16:45 SARS-CoV-2 (PCR) Negative (NEGATIVE) 02/03/20 13:16 Tissue Pathology To follow 02/03/20 19:30 - Plan (1) Acute appendicitis Status: Acute Qualifiers: Acute appendicitis type: unspecified acute appendicitis type Qualified Code(s): K35.80 - Unspecified acute appendicitis Plan: STATUS POST APPENDECTOMY, D5 1/2NS AT 150 ML/HR, LOVENOX 30MG SC DAILY AFTER SURGERY, FLAGYL 500MG IV Q8H, ZOSYN 3.375G IV TID, DILAUDID 1MG IV Q4H PRN PAIN, MORPHINE 2MG IV Q4H PRN PAIN, ZOFRAN 4MG IV Q8H PRN NAUSEA, PROTONIX 40MG IV DAILY, AND HIS HOME MEDICATIONS OF NORVASC, NEURONTIN, ZESTRIL, PRILOSEC, AND ZOCOR WERE RESUMED. (2) Pneumonia Status: Acute Qualifiers: Pneumonia type: due to unspecified organism Laterality: bilateral Lung location: unspecified part of lung Qualified Code(s): J18.9 - Pneumonia, unspecified organism (3) Peritonitis Status: Acute (4) Ileus Status: Acute
--- NOTE | 2020-02-05 14:08 | PCM.PROG ---
Progress Note - Progress Note for Day of Date of Exam: 02/05/20 - Subjective Subjective: WAS ADMITTED FOR PNAUMONIA AND ACUTE APPENDICITIS. HE IS DAY 2 STATUS POST LAPROSCOPIC APPENDECTOMY. STATED IN HIS OPERATIVE REPORT THAT PATIENT ALSO HAD AN ILEUS WITH PERITONITIS. HE CONTINUES WITH COMPLAINTS OF SHORTNESS OF BREATH AND ABDOMINAL PAIN TODAY. HE REPORTS THAT PAIN IS WORSE TODAY. NG TUBE AND WYNNE WERE REMOVED YESTERDAY. ON EXAMINATION, HEART IS REGULAR IN RATE AND RHYTHM. BILATERAL LUNGS ARE NOTED WITH DIMINISHED LUNG SOUNDS THROUGHOUT. ABDOMEN IS NOTED WITH SURGICAL DRESSINGS AND A RACHEL DRAIN. SMALL AMOUNT OF BLOODY DRAINAGE NOTED IN DRAIN THIS MORNING. HIS VITALS THIS MORNING ARE: 98.3-91-18-98%-105/64. LABS WERE OBTAINED. ABNORMAL LAB VALUES INCL UDE THE FOLLOWING: WBC 18.5, RBC 3.75, HGB 11.6, HCT 34.8, POTASSIUM 3.3, CREATININE 1.72, GLUCOSE 118, CALCIUM 7.9, MAGNESIUM 1.3, AST 40, ALBUMIN 2.1, GLOBULIN 5.4. BLOOD CULTURES ARE PENDING. HE IS CURRENTLY RECEIVING D5 1/2NS AT 150 ML/HR, LOVENOX 30MG SC DAILY AFTER SURGERY, FLAGYL 500MG IV Q8H, ZOSYN 3.375G IV TID, DILAUDID 1MG IV Q4H PRN PAIN, MORPHINE 2MG IV Q4H PRN PAIN, ZOFRAN 4MG IV Q8H PRN NAUSEA, PROTONIX 40MG IV DAILY, AND HIS HOME MEDICATIONS OF NORVASC, NEURONTIN, ZESTRIL, PRILOSEC, AND ZOCOR WERE RESUMED. WE WILL START PEPCID 20MG IV DAILY TODAY. WILL CONTINUE TO MONITOR PATIENT. PHYSICAL AND OCCUPATIONAL THERAPIES WILL CONTINUE TO WORK WITH PATIENT TODAY. OTHERWISE, WE WILL FOLLOW UP WITH AM LABS AND CONTINUE TO MONITOR. - Past Medical Family Social History Past Med/Fam/Surg Hx: No changes since H&P Allergies: Allergies No Known Drug Allergies Allergy (Verified 02/03/20 14:02) - Review of Systems ROS: No change since H&P - Vital Signs and I&O's Vital Signs: Temperature 98.3 F Pulse Rate [Left Brachial] 91 Pulse Rate [Right Brachial] 76 Pulse Rate 103 Respiratory Rate 18 Blood Pressure [Left Arm] 105/64 Blood Pressure [Right Arm] 106/56 Blood Pressure 98/59 O2 Sat by Pulse Oximetry 98 Intake and Output: Intake & Output 02/03/20 02/04/20 02/05/20 02/06/20 11:59 11:59 11:59 11:59 Intake Total 5545 / 5545 2079 / 2079 Output Total 4029 / 4029 1125 / 1125 Balance 1516 / 1516 955 / 955 - Physical Exam Oriented: Normal Eyes: Normal Ear: Normal Nose: Normal Throat: Normal Respiratory: Diminished Cardiovascular: Normal : Normal Auscultation: Bowel Sounds: Decreased Tenderness: Diffuse (soft, full abdomen with diffuse tenderness . BS hypoactive ), Mild Skin: Normal Musculoskeletal: Normal Psychiatric: Normal Mood Description: Calm Affect: Normal Speech Pattern: Clear, Appropriate - Laboratory and Diagnostics Result Diagrams: 02/05/20 05:39 02/05/20 05:39 Labs: Laboratory WBC 18.5 X10^3/uL (3.6-10.0) H 02/05/20 05:39 RBC 3.75 X10^6/uL (4.7-6.0) L 02/05/20 05:39 Hgb 11.6 g/dL (13.5-18.0) L 02/05/20 05:39 Hct 34.8 % (42.0-54.0) L 02/05/20 05:39 MCV 93.0 fL (80.0-100.0) 02/05/20 05:39 MCH 31.0 pg (27.0-34.0) 02/05/20 05:39 MCHC 33.4 g/dL (33.0-35.0) 02/05/20 05:39 RDW 14.7 % (11.6-16.5) 02/05/20 05:39 Plt Count 200 X10^3/uL (150.0-450.0) 02/05/20 05:39 Plt Count Comment Adequate (ADEQUATE) 02/05/20 05:39 MPV 8.2 fL (7.4-11.0) 02/05/20 05:39 Neut % (Auto) 95.3 % (42.0-75.0) H 02/05/20 05:39 Lymph % (Auto) 2.8 % (21.0-51.0) L 02/05/20 05:39 [place] % (Auto) 1.8 % (0.0-13.0) 02/05/20 05:39 Eos % (Auto) 0.0 % (0.9-2.9) L 02/05/20 05:39 Baso % (Auto) 0.1 % (0.2-1.0) L 02/05/20 05:39 Neut # (Auto) 17.6 x10^3/uL (2.2-4.8) H 02/05/20 05:39 Lymph # (Auto) 0.5 X10^3/uL (1.3-2.9) L 02/05/20 05:39 [place] # (Auto) 0.3 x10^3/uL (0.3-0.8) 02/05/20 05:39 Eos # (Auto) 0.0 x10^3/uL (0.0-0.2) 02/05/20 05:39 Baso # (Auto) 0.0 X10^3/uL (0.0-0.1) 02/05/20 05:39 Absolute Nucleated RBC 0.0 /100WBC 02/05/20 05:39 Total Counted 100 02/05/20 05:39 Neutrophils % (Manual) 93 % (39-76) H 02/05/20 05:39 Band Neutrophils % 5 % (0-10) 02/05/20 05:39 Lymphocytes % (Manual) 2 % (13-43) L 02/05/20 05:39 Monocytes % (Manual) 6 % (4-9) 02/04/20 06:10 Plt Morphology Comment Normal (NORMAL) 02/05/20 05:39 RBC Morphology Normal (NORMAL) 02/05/20 05:39 Sample Site Left radial 02/05/20 10:57 ABG pH 7.420 (7.35-7.45) 02/05/20 10:57 ABG pCO2 31.0 mmHg (35.0-45.0) L 02/05/20 10:57 ABG pO2 60.0 mmHg (80.0-100.0) L 02/05/20 10:57 ABG HCO3 20.1 mmol/L (22-26) L 02/05/20 10:57 ABG O2 Saturation 91.0 % (90-100) 02/05/20 10:57 ABG Base Excess -3.5 mmol/L (-2.0-2.0) L 02/05/20 10:57 Greg Test Pos 02/05/20 10:57 A-a Gradient 51.0 mmHg 02/05/20 10:57 FiO2 21.0 02/05/20 10:57 Blood Gas Comments Yoan well cb 02/05/20 10:57 Sodium 137 mmol/L (136-145) 02/05/20 05:39 Corrected Sodium 137 mmol/L (136-145) 02/05/20 05:39 Potassium 3.3 mmol/L (3.5-5.1) L 02/05/20 05:39 Chloride 104 mmol/L (98-107) 02/05/20 05:39 Carbon Dioxide 22.2 mmol/L (21-32) 02/05/20 05:39 BUN 16 mg/dL (7-18) 02/05/20 05:39 Creatinine 1.72 mg/dL (0.70-1.30) H 02/05/20 05:39 Est GFR (MDRD) Af Amer 50 (>60) L 02/05/20 05:39 Est GFR (MDRD) Non-Af 42 (>60) L 02/05/20 05:39 Glucose 118 mg/dL (65-99) H 02/05/20 05:39 Calcium 7.9 mg/dL (8.5-10.1) L 02/05/20 05:39 Corrected Calcium 9.4 mg/dL (8.5-10.1) 02/05/20 05:39 Magnesium 1.3 mg/dL (1.7-2.9) L 02/05/20 05:39 Total Bilirubin 0.30 mg/dL (0.2-1.0) 02/05/20 05:39 AST 40 Units/L (15-37) H 02/05/20 05:39 ALT 13 Units/L (12-78) 02/05/20 05:39 Alkaline Phosphatase 51 Units/L (46-116) 02/05/20 05:39 Total Protein 7.5 g/dL (6.4-8.2) 02/05/20 05:39 Albumin 2.1 g/dL (3.4-5.0) L 02/05/20 05:39 Globulin 5.4 g/dL (2.5-4.5) H 02/05/20 05:39 Albumin/Globulin Ratio 0.4 Ratio (1.1-2.1) L 02/05/20 05:39 Amylase 101 Units/L (25-115) 02/03/20 10:05 Lipase 76 Units/L (73-393) 02/03/20 10:05 Specimen Type Clean catch urine 02/03/20 16:45 Urine Color Yellow (YELLOW) 02/03/20 16:45 Urine Appearance Clear (CLEAR) 02/03/20 16:45 Urine pH 5.0 (5.0 - 8.0) 02/03/20 16:45 Ur Specific [place] 1.015 (1.000-1.030) 02/03/20 16:45 Urine Protein 2+ (NEGATIVE) 02/03/20 16:45 Urine Glucose (UA) Negative (NEGATIVE) 02/03/20 16:45 Urine Ketones Negative (NEGATIVE) 02/03/20 16:45 Urine Occult Blood 3+ (NEGATIVE) 02/03/20 16:45 Urine Nitrite Negative (NEGATIVE) 02/03/20 16:45 Urine Bilirubin Negative (NEGATIVE) 02/03/20 16:45 Urine Urobilinogen Normal (NORMAL) 02/03/20 16:45 Ur Leukocyte Esterase Negative (NEGATIVE) 02/03/20 16:45 Urine RBC 0-2 /HPF (0-3) 02/03/20 16:45 Urine WBC 0-2 /HPF (0-5) 02/03/20 16:45 Ur Squamous Epith Cells Rare /HPF (NEGATIVE) 02/03/20 16:45 Urine Bacteria Negative /HPF (NEGATIVE) 02/03/20 16:45 Ur Culture Indicated? No/not indicated 02/03/20 16:45 SARS-CoV-2 (PCR) Negative (NEGATIVE) 02/03/20 13:16 Tissue Pathology To follow 02/03/20 19:30 - Plan (1) Acute appendicitis Status: Acute Qualifiers: Acute appendicitis type: unspecified acute appendicitis type Qualified Code(s): K35.80 - Unspecified acute appendicitis Plan: STATUS POST APPENDECTOMY, D5 1/2NS AT 150 ML/HR, LOVENOX 30MG SC DAILY AFTER SURGERY, FLAGYL 500MG IV Q8H, ZOSYN 3.375G IV TID, DILAUDID 1MG IV Q4H PRN PAIN, MORPHINE 2MG IV Q4H PRN PAIN, ZOFRAN 4MG IV Q8H PRN NAUSEA, PROTONIX 40MG IV DAILY, AND HIS HOME MEDICATIONS OF NORVASC, NEURONTIN, ZESTRIL, PRILOSEC, AND ZOCOR WERE RESUMED. (2) Pneumonia Status: Acute Qualifiers: Pneumonia type: due to unspecified organism Laterality: bilateral Lung location: unspecified part of lung Qualified Code(s): J18.9 - Pneumonia, unspecified organism (3) Peritonitis Status: Acute (4) Ileus Status: Acute
[2020-02-05] MEDS: XOPENEX 1.25 MG/3 ML NEBULE NEB SCH ×3 (14:15→21:30)
[2020-02-05] MEDS ORDERED: FLAGYL IV PREMIX 500 MG BAG 500 MG/100 ML BAG IV ONE (16:01)
--- NOTE | 2020-02-05 17:34 | RAD ---
HISTORYABDOMINAL DISTENTION PMH: [id number] are multiple loops of mildly dilated large and small bowel thr oughout the abdomen. There surgical clips along the right lower quadrant. There are skin clips along the lower abdomen and pelvis. There is no free air. No abnormal calcifications are seen. The bones ar e intact.IMPRESSIONQuestionable diffuse mild postop ileus.Electronically signed by: ARTIS SIGALA (No v 2019 17:33:25)
[2020-02-05] MEDS: ZOCOR TAB 40 MG PO SCH (23:27)
[2020-02-06] MEDS: D5 1/2 NS 1000 ML 1,000 ML IV SCH ×3 (03:42→13:26)
[2020-02-06] MEDS: FLAGYL IV PREMIX 500 MG BAG 500 MG/100 ML BAG IV SCH ×3 (05:00→21:25)
--- NOTE | 2020-02-06 05:59 | RAD ---
HISTORYSOBSTUDYCHEST, 1 [id number]/10/2020FINDINGSThe trachea is midline. The cardiac silhouette is mildly enlarged, similar to prior exam.. Right greater than left basilar opacities/infiltrates, similar to prior exam. No pleural effusion or pneumothorax.. The bony thorax is unremarkable.IMPRESSIONNo significant interval change.Electronically signed by: Radha Carranza (Feb 06, 2020 05:58:10)
[2020-02-06] MEDS: ZOSYN VIAL 3.375 GRAMS 3.375 G in NS 100 ML IV + SPIKE MINIBAG* 100 ML IV SCH ×3 (06:00→22:38)
[2020-02-06 06:57] LABS: BASOPHILS % (AUTO) 0.2 % (0.2-1.0); EOSINOPHILS % (AUTO) 0.1 % (0.9-2.9); HEMATOCRIT 36.5 % (42.0-54.0); HEMOGLOBIN 12.2 g/dL (13.5-18.0); LYMPHOCYTES # (AUTO) 0.4 X10^3/uL (1.3-2.9); LYMPHOCYTES % (AUTO) 2.4 % (21.0-51.0); MEAN CORPUSCULAR HEMOGLOBIN 31.2 pg (27.0-34.0); MEAN CORPUSCULAR HGB CONC 33.5 g/dL (33.0-35.0); MEAN CORPUSCULAR VOLUME 93.2 fL (80.0-100.0); MEAN PLATELET VOLUME 8.4 fL (7.4-11.0); MONOCYTES # (AUTO) 0.3 x10^3/uL (0.3-0.8); MONOCYTES % (AUTO) 1.6 % (0.0-13.0); NEUTROPHILS # (AUTO) 17.6 x10^3/uL (2.2-4.8); NEUTROPHILS % (AUTO) 95.7 % (42.0-75.0); PLATELET COUNT 227 X10^3/uL (150.0-450.0); RED BLOOD COUNT 3.92 X10^6/uL (4.7-6.0); RED CELL DISTRIBUTION WIDTH 14.5 % (11.6-16.5); WHITE BLOOD COUNT 18.4 X10^3/uL (3.6-10.0)
[2020-02-06 07:14] LABS: CALCIUM 8.3 mg/dL (8.5-10.1); CARBON DIOXIDE 18.6 mmol/L (21-32); CREATININE 1.51 mg/dL (0.70-1.30); TOTAL PROTEIN 7.7 g/dL (6.4-8.2)
[2020-02-06 07:25] LABS: BAND NEUTROPHILS % 2 % (0-10)
[2020-02-06 07:26] LABS: PLATELET MORPHOLOGY COMMENT NORMAL (NORMAL)
[2020-02-06 07:34] LABS: ALBUMIN 1.8 g/dL (3.4-5.0); COR CA(FOR HYPOALB) 10.1 mg/dL (8.5-10.1)
[2020-02-06] MEDS ORDERED: ZESTRIL TAB 20 MG ONE (08:11)
[2020-02-06] MEDS: EFFEXOR TAB 75 MG (BID DOSING) PO SCH (08:32)
[2020-02-06] MEDS: ZESTRIL TAB 20 MG PO SCH ×2 (08:33→23:23)
[2020-02-06] MEDS: PROTONIX INJ 40 MG VIAL IVP SCH (08:33)
[2020-02-06] MEDS: PriLOSEC PO SCH (08:33)
[2020-02-06] MEDS: NEURONTIN CAP 100 MG PO SCH ×2 (08:33→23:23)
[2020-02-06] MEDS: NORVASC TAB 5 MG PO SCH (08:33)
[2020-02-06] MEDS: LOVENOX INJ 40 MG SYR SC SCH (08:34)
[2020-02-06] MEDS: ZOFRAN INJ 4 MG VIAL IVP PRN (08:34)
[2020-02-06] MEDS: PEPCID 20 MG IV PREMIX* 20 MG/50 ML BAG IV SCH (08:34)
[2020-02-06] MEDS: XOPENEX 1.25 MG/3 ML NEBULE NEB SCH ×4 (09:15→20:40)
--- NOTE | 2020-02-06 10:25 | DR.PROGNOT ---
Hospital Progress Notes - Progress Note for Day of: Progress Note Date: 02/06/20 - Chief Complaint Chief Complaint: Post op day 3. vomited small amount this am . still having abdominal distention with no bowel movement yet . alert , no acute distress . WBC 18.5 . K 3.3. tempo 98.6 - Past Medical Family Social History Past Med/Fam/Surg Hx: No changes since H&P Allergies: Allergies No Known Drug Allergies Allergy (Verified 02/03/20 14:02) - Review Of Systems ROS: No change since H&P - Vital Signs Vital Signs: Temperature 98.7 F Pulse Rate [Left Brachial] 90 Pulse Rate [Right Brachial] 95 Pulse Rate 87 Respiratory Rate 20 Blood Pressure [Left Arm] 127/65 Blood Pressure [Right Arm] 138/77 Blood Pressure 98/59 O2 Sat by Pulse Oximetry 95 - Physical Exam Oriented: Normal Eyes: Normal Ear: Normal Nose: Normal Throat: Normal Respiratory: Diminished Cardiovascular: Normal : Normal GI:Auscultation: Decreased GI: Tenderness: Diffuse (distended abdomen with diffuse tenderness . BS hypoactive ), Mild Skin: Normal Musculoskeletal: Normal Psychiatric: Normal Mood Description: Calm Affect: Normal Speech Pattern: Clear - Laboratory and Diagnostics Result Diagrams: 02/06/20 05:40 02/06/20 05:40 Labs: Laboratory WBC 18.4 X10^3/uL (3.6-10.0) H 02/06/20 05:40 RBC 3.92 X10^6/uL (4.7-6.0) L 02/06/20 05:40 Hgb 12.2 g/dL (13.5-18.0) L 02/06/20 05:40 Hct 36.5 % (42.0-54.0) L 02/06/20 05:40 MCV 93.2 fL (80.0-100.0) 02/06/20 05:40 MCH 31.2 pg (27.0-34.0) 02/06/20 05:40 MCHC 33.5 g/dL (33.0-35.0) 02/06/20 05:40 RDW 14.5 % (11.6-16.5) 02/06/20 05:40 Plt Count 227 X10^3/uL (150.0-450.0) 02/06/20 05:40 Plt Count Comment Adequate (ADEQUATE) 02/06/20 05:40 MPV 8.4 fL (7.4-11.0) 02/06/20 05:40 Neut % (Auto) 95.7 % (42.0-75.0) H 02/06/20 05:40 Lymph % (Auto) 2.4 % (21.0-51.0) L 02/06/20 05:40 [place] % (Auto) 1.6 % (0.0-13.0) 02/06/20 05:40 Eos % (Auto) 0.1 % (0.9-2.9) L 02/06/20 05:40 Baso % (Auto) 0.2 % (0.2-1.0) 02/06/20 05:40 Neut # (Auto) 17.6 x10^3/uL (2.2-4.8) H 02/06/20 05:40 Lymph # (Auto) 0.4 X10^3/uL (1.3-2.9) L 02/06/20 05:40 [place] # (Auto) 0.3 x10^3/uL (0.3-0.8) 02/06/20 05:40 Eos # (Auto) 0.0 x10^3/uL (0.0-0.2) 02/06/20 05:40 Baso # (Auto) 0.0 X10^3/uL (0.0-0.1) 02/06/20 05:40 Absolute Nucleated RBC 0.1 /100WBC 02/06/20 05:40 Total Counted 100 02/06/20 05:40 Neutrophils % (Manual) 94 % (39-76) H 02/06/20 05:40 Band Neutrophils % 2 % (0-10) 02/06/20 05:40 Lymphocytes % (Manual) 2 % (13-43) L 02/06/20 05:40 Monocytes % (Manual) 2 % (4-9) L 02/06/20 05:40 Plt Morphology Comment Normal (NORMAL) 02/06/20 05:40 RBC Morphology Normal (NORMAL) 02/06/20 05:40 Sample Site Left radial 02/05/20 10:57 ABG pH 7.420 (7.35-7.45) 02/05/20 10:57 ABG pCO2 31.0 mmHg (35.0-45.0) L 02/05/20 10:57 ABG pO2 60.0 mmHg (80.0-100.0) L 02/05/20 10:57 ABG HCO3 20.1 mmol/L (22-26) L 02/05/20 10:57 ABG O2 Saturation 91.0 % (90-100) 02/05/20 10:57 ABG Base Excess -3.5 mmol/L (-2.0-2.0) L 02/05/20 10:57 Greg Test Pos 02/05/20 10:57 A-a Gradient 51.0 mmHg 02/05/20 10:57 FiO2 21.0 02/05/20 10:57 Blood Gas Comments Yoan well cb 02/05/20 10:57 Sodium 133 mmol/L (136-145) L 02/06/20 05:40 Corrected Sodium 134 mmol/L (136-145) L 02/06/20 05:40 Potassium 3.4 mmol/L (3.5-5.1) L 02/06/20 05:40 Chloride 101 mmol/L (98-107) 02/06/20 05:40 Carbon Dioxide 18.6 mmol/L (21-32) L 02/06/20 05:40 BUN 10 mg/dL (7-18) 02/06/20 05:40 Creatinine 1.51 mg/dL (0.70-1.30) H 02/06/20 05:40 Est GFR (MDRD) Af Amer 58 (>60) L 02/06/20 05:40 Est GFR (MDRD) Non-Af 48 (>60) L 02/06/20 05:40 Glucose 137 mg/dL (65-99) H 02/06/20 05:40 Calcium 8.3 mg/dL (8.5-10.1) L 02/06/20 05:40 Corrected Calcium 10.1 mg/dL (8.5-10.1) 02/06/20 05:40 Magnesium 1.8 mg/dL (1.7-2.9) 02/06/20 05:40 Total Bilirubin 0.40 mg/dL (0.2-1.0) 02/06/20 05:40 AST 41 Units/L (15-37) H 02/06/20 05:40 ALT 11 Units/L (12-78) L 02/06/20 05:40 Alkaline Phosphatase 63 Units/L (46-116) 02/06/20 05:40 Total Protein 7.7 g/dL (6.4-8.2) 02/06/20 05:40 Albumin 1.8 g/dL (3.4-5.0) L 02/06/20 05:40 Globulin 5.9 g/dL (2.5-4.5) H 02/06/20 05:40 Albumin/Globulin Ratio 0.3 Ratio (1.1-2.1) L 02/06/20 05:40 Amylase 101 Units/L (25-115) 02/03/20 10:05 Lipase 76 Units/L (73-393) 02/03/20 10:05 Specimen Type Clean catch urine 02/03/20 16:45 Urine Color Yellow (YELLOW) 02/03/20 16:45 Urine Appearance Clear (CLEAR) 02/03/20 16:45 Urine pH 5.0 (5.0 - 8.0) 02/03/20 16:45 Ur Specific [place] 1.015 (1.000-1.030) 02/03/20 16:45 Urine Protein 2+ (NEGATIVE) 02/03/20 16:45 Urine Glucose (UA) Negative (NEGATIVE) 02/03/20 16:45 Urine Ketones Negative (NEGATIVE) 02/03/20 16:45 Urine Occult Blood 3+ (NEGATIVE) 02/03/20 16:45 Urine Nitrite Negative (NEGATIVE) 02/03/20 16:45 Urine Bilirubin Negative (NEGATIVE) 02/03/20 16:45 Urine Urobilinogen Normal (NORMAL) 02/03/20 16:45 Ur Leukocyte Esterase Negative (NEGATIVE) 02/03/20 16:45 Urine RBC 0-2 /HPF (0-3) 02/03/20 16:45 Urine WBC 0-2 /HPF (0-5) 02/03/20 16:45 Ur Squamous Epith Cells Rare /HPF (NEGATIVE) 02/03/20 16:45 Urine Bacteria Negative /HPF (NEGATIVE) 02/03/20 16:45 Ur Culture Indicated? No/not indicated 02/03/20 16:45 SARS-CoV-2 (PCR) Negative (NEGATIVE) 02/03/20 13:16 Tissue Pathology To follow 02/03/20 19:30 - Assessment and Plan 1: Post Op lap appendectomy for perforated appendicitis with peritonitis . moderate ileus. CKD .HTN . old CVA. same IV ATB .DVT prophylaxis . fleet enemas. clear liquid today . OOB . - Problem Patient Problems: Patient Problems Acute appendicitis (Acute) K35.80 Pneumonia (Acute) J18.9 Ileus (Acute) K56.7 Peritonitis (Acute) K65.9
[2020-02-06] MEDS ORDERED: NS 250 ML IV 250 ML IV ONE (13:15)
[2020-02-06] MEDS: MAGNESIUM SULFATE 1 GRAM/100 mL PREMIX 1 GM/100 ML BAG IV PRN (15:32)
[2020-02-06] MEDS: ZOCOR TAB 40 MG PO SCH (23:24)
[2020-02-07] MEDS: D5 1/2 NS 1000 ML 1,000 ML IV SCH ×6 (00:30→18:56)
[2020-02-07] MEDS: FLAGYL IV PREMIX 500 MG BAG 500 MG/100 ML BAG IV SCH ×3 (05:10→21:58)
[2020-02-07 06:16] LABS: BASOPHILS % (AUTO) 0.2 % (0.2-1.0); EOSINOPHILS % (AUTO) 0.2 % (0.9-2.9); HEMATOCRIT 33.5 % (42.0-54.0); HEMOGLOBIN 11.2 g/dL (13.5-18.0); LYMPHOCYTES # (AUTO) 0.5 X10^3/uL (1.3-2.9); LYMPHOCYTES % (AUTO) 2.9 % (21.0-51.0); MEAN CORPUSCULAR HGB CONC 33.3 g/dL (33.0-35.0); MEAN CORPUSCULAR VOLUME 92.9 fL (80.0-100.0); MEAN PLATELET VOLUME 7.8 fL (7.4-11.0); MONOCYTES # (AUTO) 0.7 x10^3/uL (0.3-0.8); MONOCYTES % (AUTO) 4.1 % (0.0-13.0); NEUTROPHILS # (AUTO) 14.9 x10^3/uL (2.2-4.8); NEUTROPHILS % (AUTO) 92.6 % (42.0-75.0); PLATELET COUNT 236 X10^3/uL (150.0-450.0); RED CELL DISTRIBUTION WIDTH 14.4 % (11.6-16.5); WHITE BLOOD COUNT 16.1 X10^3/uL (3.6-10.0)
--- NOTE | 2020-02-07 06:30 | RAD ---
HISTORYSOBSTUDYCHEST, 1 VIEWCOMPARISONOne day prior.TECHNIQUEAP view of the chestFINDINGSCardiac and mediastinal contours are stable. No significant change in right hazy lung opacity in medial left base consolidation. Small pleural effusions are suspected. No pneumothorax.IMPRESSIONNo significant change.Electronically signed by: Trav Diaz (Feb 07, 2020 06:28:53)
[2020-02-07 06:32] LABS: ALANINE AMINOTRANSFERASE 6 Units/L (12-78); ALBUMIN 1.8 g/dL (3.4-5.0); ALKALINE PHOSPHATASE 54 Units/L (46-116); ASPARTATE AMINO TRANSFERASE 28 Units/L (15-37); BLOOD UREA NITROGEN 7 mg/dL (7-18); CALCIUM 8.4 mg/dL (8.5-10.1); CARBON DIOXIDE 23.5 mmol/L (21-32); CHLORIDE 104 mmol/L (98-107); COR CA(FOR HYPOALB) 10.2 mg/dL (8.5-10.1); COR NA(FOR HYPERGLY) 139 mmol/L (136-145); CREATININE 1.38 mg/dL (0.70-1.30); MAGNESIUM 1.9 mg/dL (1.7-2.9); SODIUM 138 mmol/L (136-145); TOTAL PROTEIN 6.9 g/dL (6.4-8.2); eGFR NON BLACK RACES 54 (>60)
--- NOTE | 2020-02-07 06:42 | RAD ---
HISTORYDISTENTED ABDOMEN,FOLLOW UP AFTER BOWEL MOVEMENTSSTUDYKUBCOMPARISONNoneTECHNIQUESupine KUBFINDINGSThere is moderate stool in the right colon. Surgical clips in the pelvis and right lower quadrant. Mildly dilated small bowel in the left pamela a bdomen measuring up to 3.7 cm. No free air on this limited view.IMPRESSIONDilatation of small bowel i n the left pamela abdomen, similar to prior. This could represent ileus or obstruction.Electronically s igned by: Trav Diaz (Feb 07, 2020 06:40:40)
[2020-02-07] MEDS: ZOSYN VIAL 3.375 GRAMS 3.375 G in NS 100 ML IV + SPIKE MINIBAG* 100 ML IV SCH ×3 (06:45→22:55)
[2020-02-07 06:49] LABS: PLATELET MORPHOLOGY COMMENT NORMAL (NORMAL)
[2020-02-07] MEDS ORDERED: POTASSIUM CHLORIDE LIQ 20 MEQ UDC PO PRN (08:18)
[2020-02-07] MEDS ORDERED: MICRO K EXTEN CAP 10 MEQ PO PRN (08:18)
[2020-02-07] MEDS ORDERED: KLOR-CON PO PRN (08:18)
[2020-02-07] MEDS ORDERED: ZESTRIL TAB 20 MG ONE ×2 (08:46→21:15)
[2020-02-07] MEDS: LOVENOX INJ 40 MG SYR SC SCH (09:07)
[2020-02-07] MEDS: PEPCID 20 MG IV PREMIX* 20 MG/50 ML BAG IV SCH (09:08)
[2020-02-07] MEDS: NORVASC TAB 5 MG PO SCH (09:08)
[2020-02-07] MEDS: ZESTRIL TAB 20 MG PO SCH ×2 (09:09→21:58)
[2020-02-07] MEDS: PriLOSEC PO SCH (09:09)
[2020-02-07] MEDS: PROTONIX INJ 40 MG VIAL IVP SCH (09:10)
[2020-02-07] MEDS: NEURONTIN CAP 100 MG PO SCH ×2 (09:10→21:59)
[2020-02-07] MEDS: EFFEXOR TAB 75 MG (BID DOSING) PO SCH (09:10)
[2020-02-07] MEDS: XOPENEX 1.25 MG/3 ML NEBULE NEB SCH ×4 (09:16→21:00)
--- NOTE | 2020-02-07 09:57 | DR.PROGNOT ---
Hospital Progress Notes - Progress Note for Day of: Progress Note Date: 02/07/20 - Chief Complaint Chief Complaint: Post op day 4. no vomiting , less nausea . had several BM and passing flatus. still having moderate abdominal distention. WBC 16.1 . K 3.1. bun 7 creatinin 1.38. tempo 98.6 - Past Medical Family Social History Past Med/Fam/Surg Hx: No changes since H&P Allergies: Allergies No Known Drug Allergies Allergy (Verified 02/03/20 14:02) - Review Of Systems ROS: No change since H&P - Vital Signs Vital Signs: Temperature 98 F Pulse Rate [Left Brachial] 121 Pulse Rate [Right Brachial] 90 Pulse Rate 97 Respiratory Rate 18 Blood Pressure [Left Arm] 163/88 Blood Pressure [Right Arm] 119/65 Blood Pressure 98/59 O2 Sat by Pulse Oximetry 96 - Physical Exam Oriented: Normal Eyes: Normal Ear: Normal Nose: Normal Throat: Normal Respiratory: Diminished Cardiovascular: Normal : Normal GI:Auscultation: Decreased GI:Palpation: Normal GI: Tenderness: Diffuse (distended abdomen with diffuse tenderness . BS hypoact paola ), Mild Skin: Normal Musculoskeletal: Normal Psychiatric: Normal Mood Description: Calm Affect: Normal Speech Pattern: Clear, Appropriate - Laboratory and Diagnostics Result Diagrams: 02/07/20 05:45 02/07/20 05:45 Labs: 02/04/20 09:05 Blood Blood Culture - Preliminary 02/04/20 08:57 Blood Blood Culture - Preliminary Laboratory WBC 16.1 X10^3/uL (3.6-10.0) H 02/07/20 05:45 RBC 3.60 X10^6/uL (4.7-6.0) L 02/07/20 05:45 Hgb 11.2 g/dL (13.5-18.0) L 02/07/20 05:45 Hct 33.5 % (42.0-54.0) L 02/07/20 05:45 MCV 92.9 fL (80.0-100.0) 02/07/20 05:45 MCH 31.0 pg (27.0-34.0) 02/07/20 05:45 MCHC 33.3 g/dL (33.0-35.0) 02/07/20 05:45 RDW 14.4 % (11.6-16.5) 02/07/20 05:45 Plt Count 236 X10^3/uL (150.0-450.0) 02/07/20 05:45 Plt Count Comment Adequate (ADEQUATE) 02/07/20 05:45 MPV 7.8 fL (7.4-11.0) 02/07/20 05:45 Neut % (Auto) 92.6 % (42.0-75.0) H 02/07/20 05:45 Lymph % (Auto) 2.9 % (21.0-51.0) L 02/07/20 05:45 Garza % (Auto) 4.1 % (0.0-13.0) 02/07/20 05:45 Eos % (Auto) 0.2 % (0.9-2.9) L 02/07/20 05:45 Baso % (Auto) 0.2 % (0.2-1.0) 02/07/20 05:45 Neut # (Auto) 14.9 x10^3/uL (2.2-4.8) H 02/07/20 05:45 Lymph # (Auto) 0.5 X10^3/uL (1.3-2.9) L 02/07/20 05:45 Garza # (Auto) 0.7 x10^3/uL (0.3-0.8) 02/07/20 05:45 Eos # (Auto) 0.0 x10^3/uL (0.0-0.2) 02/07/20 05:45 Baso # (Auto) 0.0 X10^3/uL (0.0-0.1) 02/07/20 05:45 Absolute Nucleated RBC 0.0 /100WBC 02/07/20 05:45 Total Counted 100 02/07/20 05:45 Neutrophils % (Manual) 90 % (39-76) H 02/07/20 05:45 Band Neutrophils % 2 % (0-10) 02/06/20 05:40 Lymphocytes % (Manual) 8 % (13-43) L 02/07/20 05:45 Monocytes % (Manual) 2 % (4-9) L 02/07/20 05:45 Plt Morphology Comment Normal (NORMAL) 02/07/20 05:45 RBC Morphology Normal (NORMAL) 02/07/20 05:45 Sample Site Left radial 02/05/20 10:57 ABG pH 7.420 (7.35-7.45) 02/05/20 10:57 ABG pCO2 31.0 mmHg (35.0-45.0) L 02/05/20 10:57 ABG pO2 60.0 mmHg (80.0-100.0) L 02/05/20 10:57 ABG HCO3 20.1 mmol/L (22-26) L 02/05/20 10:57 ABG O2 Saturation 91.0 % (90-100) 02/05/20 10:57 ABG Base Excess -3.5 mmol/L (-2.0-2.0) L 02/05/20 10:57 Greg Test Pos 02/05/20 10:57 A-a Gradient 51.0 mmHg 02/05/20 10:57 FiO2 21.0 02/05/20 10:57 Blood Gas Comments Yoan well cb 02/05/20 10:57 Sodium 138 mmol/L (136-145) 02/07/20 05:45 Corrected Sodium 139 mmol/L (136-145) 02/07/20 05:45 Potassium 3.1 mmol/L (3.5-5.1) L 02/07/20 05:45 Chloride 104 mmol/L (98-107) 02/07/20 05:45 Carbon Dioxide 23.5 mmol/L (21-32) 02/07/20 05:45 BUN 7 mg/dL (7-18) 02/07/20 05:45 Creatinine 1.38 mg/dL (0.70-1.30) H 02/07/20 05:45 Est GFR (MDRD) Af Amer > 60 (>60) 02/07/20 05:45 Est GFR (MDRD) Non-Af 54 (>60) L 02/07/20 05:45 Glucose 123 mg/dL (65-99) H 02/07/20 05:45 Calcium 8.4 mg/dL (8.5-10.1) L 02/07/20 05:45 Corrected Calcium 10.2 mg/dL (8.5-10.1) H 02/07/20 05:45 Magnesium 1.9 mg/dL (1.7-2.9) 02/07/20 05:45 Total Bilirubin 0.30 mg/dL (0.2-1.0) 02/07/20 05:45 AST 28 Units/L (15-37) 02/07/20 05:45 ALT 6 Units/L (12-78) L 02/07/20 05:45 Alkaline Phosphatase 54 Units/L (46-116) 02/07/20 05:45 Total Protein 6.9 g/dL (6.4-8.2) 02/07/20 05:45 Albumin 1.8 g/dL (3.4-5.0) L 02/07/20 05:45 Globulin 5.1 g/dL (2.5-4.5) H 02/07/20 05:45 Albumin/Globulin Ratio 0.4 Ratio (1.1-2.1) L 02/07/20 05:45 Amylase 101 Units/L (25-115) 02/03/20 10:05 Lipase 76 Units/L (73-393) 02/03/20 10:05 Specimen Type Clean catch urine 02/03/20 16:45 Urine Color Yellow (YELLOW) 02/03/20 16:45 Urine Appearance Clear (CLEAR) 02/03/20 16:45 Urine pH 5.0 (5.0 - 8.0) 02/03/20 16:45 Ur Specific [place] 1.015 (1.000-1.030) 02/03/20 16:45 Urine Protein 2+ (NEGATIVE) 02/03/20 16:45 Urine Glucose (UA) Negative (NEGATIVE) 02/03/20 16:45 Urine Ketones Negative (NEGATIVE) 02/03/20 16:45 Urine Occult Blood 3+ (NEGATIVE) 02/03/20 16:45 Urine Nitrite Negative (NEGATIVE) 02/03/20 16:45 Urine Bilirubin Negative (NEGATIVE) 02/03/20 16:45 Urine Urobilinogen Normal (NORMAL) 02/03/20 16:45 Ur Leukocyte Esterase Negative (NEGATIVE) 02/03/20 16:45 Urine RBC 0-2 /HPF (0-3) 02/03/20 16:45 Urine WBC 0-2 /HPF (0-5) 02/03/20 16:45 Ur Squamous Epith Cells Rare /HPF (NEGATIVE) 02/03/20 16:45 Urine Bacteria Negative /HPF (NEGATIVE) 02/03/20 16:45 Ur Culture Indicated? No/not indicated 02/03/20 16:45 SARS-CoV-2 (PCR) Negative (NEGATIVE) 02/03/20 13:16 Tissue Pathology To follow 02/03/20 19:30 - Assessment and Plan 1: Post Op lap appendectomy for perforated appendicitis with peritonitis . improving ileus. CKD .HTN . old CVA. same IV ATB .DVT prophylaxis . fleet enemas. full liquid . keep RACHEL. OOB . - Problem Patient Problems: Patient Problems Acute appendicitis (Acute) K35.80 Pneumonia (Acute) J18.9 Ileus (Acute) K56.7 Peritonitis (Acute) K65.9
--- NOTE | 2020-02-07 10:54 | PCM.PROG ---
Progress Note - Progress Note for Day of Date of Exam: 02/06/20 - Subjective Subjective: WAS ADMITTED FOR PNEUMONIA, ACUTE APPENDICITIS WITH PERITONITIS, AND ILEUS. HE IS DAY 3 STATUS POST LAPROSCOPIC APPENDECTOMY. HE CONTINUES WITH COMPLAINTS OF SHORTNESS OF BREATH AND ABDOMINAL PAIN TODAY. HE DENIES A BOWEL MOVEMENT IN SEVERAL DAYS. ON EXAMINATION, HEART IS REGULAR IN RATE AND RHYTHM. BILATERAL LUNGS ARE NOTED WITH DIMINISHED LUNG SOUNDS THROUGHOUT. ABDOMEN IS DISTENDED AND NOTED WITH SURGICAL DRESSINGS AND A RACHEL DRAIN. HIS VITALS THIS MORNING ARE: 98.7-95-20-90% NC-138/77. LABS WERE OBTAINED. ABNORMAL LAB VALUES INCLUDE THE FOLLOWING: WBC 18.4, RBC 3.92, HGB 12. 2, HCT 36.5, SODIUM 133, POTASSIUM 3.4, CARBON DIOXIDE 18.6, CREATININE 1.51, GLUCOSE 137, CALCIUM 8.3, AST 41, ALT 11, ALBUMIN 1.8, GLOBULIN 5.9. BLOOD CULTURES ARE PENDING. A CHEST XRAY WAS OBTAINED AND REVEALED: The trachea is midline. The cardiac silhouette is mildly enlarged, similar to prior exam. Right greater than left basilar opacities/infiltrates, similar to prior exam. No pleural effusion or pneumothorax. The bony thorax is unremarkable. HE IS CURRENTLY RECEIVING D5 1/2NS AT 150 ML/HR, LOVENOX 30MG SC DAILY AFTER SURGERY, FLAGYL 500MG IV Q8H, ZOSYN 3.375G IV TID, DILAUDID 1MG IV Q4H PRN PAIN, MORPHINE 2MG IV Q4H PRN PAIN, ZOFRAN 4MG IV Q8H PRN NAUSEA, PROTONIX 40MG IV DAILY, AND HIS HOME MEDICATIONS OF NORVASC, NEURONTIN, ZESTRIL, PRILOSEC, AND ZOCOR WERE RESUMED. WE WILL START PEPCID 20MG IV DAILY TODAY. WILL CONTINUE TO MONITOR PATIENT. PHYSICAL AND OCCUPATIONAL THERAPIES WILL CONTINUE TO WORK WITH PATIENT TODAY. OTHERWISE, WE WILL FOLLOW UP WITH AM LABS AND CONTINUE TO MONITOR. - Past Medical Family Social History Past Med/Fam/Surg Hx: No changes since H&P Allergies: Allergies No Known Drug Allergies Allergy (Verified 02/03/20 14:02) - Review of Systems ROS: No change since H&P - Vital Signs and I&O's Vital Signs: Temperature 98 F Pulse Rate [Left Brachial] 121 Pulse Rate [Right Brachial] 90 Pulse Rate 97 Respiratory Rate 18 Blood Pressure [Left Arm] 163/88 Blood Pressure [Right Arm] 119/65 Blood Pressure 98/59 O2 Sat by Pulse Oximetry 96 Intake and Output: Intake & Output 02/04/20 02/05/20 02/06/20 02/07/20 11:59 11:59 11:59 11:59 Intake Total 5545 / 5545 2080 / 2080 2450 / 2450 3407 / 3407 Output Total 4029 / 4029 1125 / 1125 920 / 920 5 / 2035 Balance 1516 / 1516 955 / 955 1530 / 1530 1372 / 1372 - Physical Exam Oriented: Normal Eyes: Normal Ear: Normal Nose: Normal Throat: Normal Respiratory: Diminished Cardiovascular: Normal : Normal Auscultation: Bowel Sounds: Decreased Palpation: Normal Tenderness: Diffuse (distended abdomen with diffuse tenderness . BS hypoactive ), Mild Skin: Normal Musculoskeletal: Normal Psychiatric: Normal Mood Description: Calm Affect: Normal Speech Pattern: Clear, Appropriate - Laboratory and Diagnostics Result Diagrams: 02/07/20 05:45 02/07/20 05:45 Labs: 02/04/20 09:05 Blood Blood Culture - Preliminary 02/04/20 08:57 Blood Blood Culture - Preliminary Laboratory WBC 16.1 X10^3/uL (3.6-10.0) H 02/07/20 05:45 RBC 3.60 X10^6/uL (4.7-6.0) L 02/07/20 05:45 Hgb 11.2 g/dL (13.5-18.0) L 02/07/20 05:45 Hct 33.5 % (42.0-54.0) L 02/07/20 05:45 MCV 92.9 fL (80.0-100.0) 02/07/20 05:45 MCH 31.0 pg (27.0-34.0) 02/07/20 05:45 MCHC 33.3 g/dL (33.0-35.0) 02/07/20 05:45 RDW 14.4 % (11.6-16.5) 02/07/20 05:45 Plt Count 236 X10^3/uL (150.0-450.0) 02/07/20 05:45 Plt Count Comment Adequate (ADEQUATE) 02/07/20 05:45 MPV 7.8 fL (7.4-11.0) 02/07/20 05:45 Neut % (Auto) 92.6 % (42.0-75.0) H 02/07/20 05:45 Lymph % (Auto) 2.9 % (21.0-51.0) L 02/07/20 05:45 [place] % (Auto) 4.1 % (0.0-13.0) 02/07/20 05:45 Eos % (Auto) 0.2 % (0.9-2.9) L 02/07/20 05:45 Baso % (Auto) 0.2 % (0.2-1.0) 02/07/20 05:45 Neut # (Auto) 14.9 x10^3/uL (2.2-4.8) H 02/07/20 05:45 Lymph # (Auto) 0.5 X10^3/uL (1.3-2.9) L 02/07/20 05:45 [place] # (Auto) 0.7 x10^3/uL (0.3-0.8) 02/07/20 05:45 Eos # (Auto) 0.0 x10^3/uL (0.0-0.2) 02/07/20 05:45 Baso # (Auto) 0.0 X10^3/uL (0.0-0.1) 02/07/20 05:45 Absolute Nucleated RBC 0.0 /100WBC 02/07/20 05:45 Total Counted 100 02/07/20 05:45 Neutrophils % (Manual) 90 % (39-76) H 02/07/20 05:45 Band Neutrophils % 2 % (0-10) 02/06/20 05:40 Lymphocytes % (Manual) 8 % (13-43) L 02/07/20 05:45 Monocytes % (Manual) 2 % (4-9) L 02/07/20 05:45 Plt Morphology Comment Normal (NORMAL) 02/07/20 05:45 RBC Morphology Normal (NORMAL) 02/07/20 05:45 Sample Site Left radial 02/05/20 10:57 ABG pH 7.420 (7.35-7.45) 02/05/20 10:57 ABG pCO2 31.0 mmHg (35.0-45.0) L 02/05/20 10:57 ABG pO2 60.0 mmHg (80.0-100.0) L 02/05/20 10:57 ABG HCO3 20.1 mmol/L (22-26) L 02/05/20 10:57 ABG O2 Saturation 91.0 % (90-100) 02/05/20 10:57 ABG Base Excess -3.5 mmol/L (-2.0-2.0) L 02/05/20 10:57 Greg Test Pos 02/05/20 10:57 A-a Gradient 51.0 mmHg 02/05/20 10:57 FiO2 21.0 02/05/20 10:57 Blood Gas Comments Yoan well cb 02/05/20 10:57 Sodium 138 mmol/L (136-145) 02/07/20 05:45 Corrected Sodium 139 mmol/L (136-145) 02/07/20 05:45 Potassium 3.1 mmol/L (3.5-5.1) L 02/07/20 05:45 Chloride 104 mmol/L (98-107) 02/07/20 05:45 Carbon Dioxide 23.5 mmol/L (21-32) 02/07/20 05:45 BUN 7 mg/dL (7-18) 02/07/20 05:45 Creatinine 1.38 mg/dL (0.70-1.30) H 02/07/20 05:45 Est GFR (MDRD) Af Amer > 60 (>60) 02/07/20 05:45 Est GFR (MDRD) Non-Af 54 (>60) L 02/07/20 05:45 Glucose 123 mg/dL (65-99) H 02/07/20 05:45 Calcium 8.4 mg/dL (8.5-10.1) L 02/07/20 05:45 Corrected Calcium 10.2 mg/dL (8.5-10.1) H 02/07/20 05:45 Magnesium 1.9 mg/dL (1.7-2.9) 02/07/20 05:45 Total Bilirubin 0.30 mg/dL (0.2-1.0) 02/07/20 05:45 AST 28 Units/L (15-37) 02/07/20 05:45 ALT 6 Units/L (12-78) L 02/07/20 05:45 Alkaline Phosphatase 54 Units/L (46-116) 02/07/20 05:45 Total Protein 6.9 g/dL (6.4-8.2) 02/07/20 05:45 Albumin 1.8 g/dL (3.4-5.0) L 02/07/20 05:45 Globulin 5.1 g/dL (2.5-4.5) H 02/07/20 05:45 Albumin/Globulin Ratio 0.4 Ratio (1.1-2.1) L 02/07/20 05:45 Amylase 101 Units/L (25-115) 02/03/20 10:05 Lipase 76 Units/L (73-393) 02/03/20 10:05 Specimen Type Clean catch urine 02/03/20 16:45 Urine Color Yellow (YELLOW) 02/03/20 16:45 Urine Appearance Clear (CLEAR) 02/03/20 16:45 Urine pH 5.0 (5.0 - 8.0) 02/03/20 16:45 Ur Specific [place] 1.015 (1.000-1.030) 02/03/20 16:45 Urine Protein 2+ (NEGATIVE) 02/03/20 16:45 Urine Glucose (UA) Negative (NEGATIVE) 02/03/20 16:45 Urine Ketones Negative (NEGATIVE) 02/03/20 16:45 Urine Occult Blood 3+ (NEGATIVE) 02/03/20 16:45 Urine Nitrite Negative (NEGATIVE) 02/03/20 16:45 Urine Bilirubin Negative (NEGATIVE) 02/03/20 16:45 Urine Urobilinogen Normal (NORMAL) 02/03/20 16:45 Ur Leukocyte Esterase Negative (NEGATIVE) 02/03/20 16:45 Urine RBC 0-2 /HPF (0-3) 02/03/20 16:45 Urine WBC 0-2 /HPF (0-5) 02/03/20 16:45 Ur Squamous Epith Cells Rare /HPF (NEGATIVE) 02/03/20 16:45 Urine Bacteria Negative /HPF (NEGATIVE) 02/03/20 16:45 Ur Culture Indicated? No/not indicated 02/03/20 16:45 SARS-CoV-2 (PCR) Negative (NEGATIVE) 02/03/20 13:16 Tissue Pathology To follow 02/03/20 19:30 - Plan (1) Acute appendicitis Status: Acute Qualifiers: Acute appendicitis type: unspecified acute appendicitis type Qualified Code(s): K35.80 - Unspecified acute appendicitis Plan: STATUS POST APPENDECTOMY, D5 1/2NS AT 150 ML/HR, LOVENOX 30MG SC DAILY AFTER SURGERY, FLAGYL 500MG IV Q8H, ZOSYN 3.375G IV TID, DILAUDID 1MG IV Q4H PRN PAIN, MORPHINE 2MG IV Q4H PRN PAIN, ZOFRAN 4MG IV Q8H PRN NAUSEA, PROTONIX 40MG IV DAILY, AND HIS HOME MEDICATIONS OF NORVASC, NEURONTIN, ZESTRIL, PRILOSEC, AND ZOCOR WERE RESUMED. (2) Pneumonia Status: Acute Qualifiers: Pneumonia type: due to unspecified organism Laterality: bilateral Lung location: unspecified part of lung Qualified Code(s): J18.9 - Pneumonia, unspecified organism (3) Peritonitis Status: Acute (4) Ileus Status: Acute
--- NOTE | 2020-02-07 11:19 | PCM.PROG ---
Progress Note - Progress Note for Day of Date of Exam: 02/07/20 - Subjective Subjective: WAS ADMITTED FOR PNEUMONIA, ACUTE APPENDICITIS WITH PERITONITIS, AND ILEUS. HE IS DAY 4 STATUS POST LAPROSCOPIC APPENDECTOMY. HE CONTINUES WITH COMPLAINTS OF SHORTNESS OF BREATH AND ABDOMINAL PAIN, BUT REPORTS SLIGHT IMPROVEMENT IN SYMPTOMS. ORDERED ENEMAS YESTERDAY. PATIENT ADMITS TO HAVING A BOWEL MOVEMENT. ON EXAMINATION, HEART IS REGULAR IN RATE AND RHYTHM. BILATERAL LUNGS ARE NOTED WITH DIMINISHED LUNG SOUNDS THROUGHOUT. ABDOMEN IS MODERATELY DISTENDED AND NOTED WITH SURGICAL DRESSINGS AND A RACHEL DRAIN. HYPOACTIVE BOWEL SOUNDS NOTED. HIS VITALS THIS MORNING ARE: 98.0-90-18-96%NC-119/65. LABS WERE OBTAINED. ABNORMAL LAB VALUES INCLUDE THE FOLLOWING: WBC 16.1, RBC 3.60, HGB 11.2, HCT 33.5, POTASSIUM 3.1, CREATININE 1.38, GLUCOSE 123, CALCIUM 8.4, ALT 6, ALBUMIN 1.8, GLOBULIN 5.1. BLOOD CULTURES ARE PENDING. A CHEST XRAY WAS OBTAINED AND REVEALED: Cardiac and mediastinal contours are stable. No significant change in right hazy lung opacity in medial left base consolidation. Small pleural effusions are suspected. No pneumothorax. KUB REVEALED: There is moderate stool in the right colon. Surgical clips in the pelvis and right lower quadrant. Mildly dilated small bowel in the left pamela abdomen measuring up to 3.7 cm. No free air on this limited view. HE IS CURRENTLY RECEIVING D5 1/2NS AT 150 ML/HR, LOVENOX 30MG SC DAILY AFTER SURGERY, FLAGYL 500MG IV Q8H, ZOSYN 3.375G IV TID, DILAUDID 1MG IV Q4H PRN PAIN, MORPHINE 2MG IV Q4H PRN PAIN, ZOFRAN 4MG IV Q8H PRN NAUSEA, PROTONIX 40MG IV DAILY, PEPCID 20MG IV DAILY, AND HIS HOME MEDICATIONS OF NORVASC, NEURONTIN, ZESTRIL, PRILOSEC, AND ZOCOR WERE RESUMED. WILL CONTINUE TO MONITOR PATIENT. PHYSICAL AND OCCUPATIONAL THERAPIES WILL CONTINUE TO WORK WITH PATIENT TODAY. OTHERWISE, WE WILL FOLLOW UP WITH AM LABS AND CONTINUE TO MONITOR. - Past Medical Family Social History Past Med/Fam/Surg Hx: No changes since H&P Allergies: Allergies No Known Drug Allergies Allergy (Verified 02/03/20 14:02) - Review of Systems ROS: No change since H&P - Vital Signs and I&O's Vital Signs: Temperature 98 F Pulse Rate [Left Brachial] 121 Pulse Rate [Right Brachial] 90 Pulse Rate 89 Respiratory Rate 18 Blood Pressure [Left Arm] 163/88 Blood Pressure [Right Arm] 119/65 Blood Pressure 98/59 O2 Sat by Pulse Oximetry 92 Intake and Output: Intake & Output 02/04/20 02/05/20 02/06/20 02/07/20 11:59 11:59 11:59 11:59 Intake Total 5545 / 5545 2080 / 2080 2450 / 2450 3407 / 3407 Output Total 4029 / 4029 1125 / 1125 920 / 920 2034 / 203 Balance 1516 / 1516 955 / 955 1530 / 1530 1372 / 1372 - Physical Exam Oriented: Normal Eyes: Normal Ear: Normal Nose: Normal Throat: Normal Respiratory: Diminished Cardiovascular: Normal : Normal Auscultation: Bowel Sounds: Decreased Tenderness: Diffuse (distended abdomen with diffuse tenderness . BS hypoactive ), Mild Skin: Normal Musculoskeletal: Normal Psychiatric: Normal Mood Description: Calm Affect: Normal Speech Pattern: Clear, Appropriate - Laboratory and Diagnostics Result Diagrams: 02/07/20 05:45 02/07/20 05:45 Labs: 02/04/20 09:05 Blood Blood Culture - Preliminary 02/04/20 08:57 Blood Blood Culture - Preliminary Laboratory WBC 16.1 X10^3/uL (3.6-10.0) H 02/07/20 05:45 RBC 3.60 X10^6/uL (4.7-6.0) L 02/07/20 05:45 Hgb 11.2 g/dL (13.5-18.0) L 02/07/20 05:45 Hct 33.5 % (42.0-54.0) L 02/07/20 05:45 MCV 92.9 fL (80.0-100.0) 02/07/20 05:45 MCH 31.0 pg (27.0-34.0) 02/07/20 05:45 MCHC 33.3 g/dL (33.0-35.0) 02/07/20 05:45 RDW 14.4 % (11.6-16.5) 02/07/20 05:45 Plt Count 236 X10^3/uL (150.0-450.0) 02/07/20 05:45 Plt Count Comment Adequate (ADEQUATE) 02/07/20 05:45 MPV 7.8 fL (7.4-11.0) 02/07/20 05:45 Neut % (Auto) 92.6 % (42.0-75.0) H 02/07/20 05:45 Lymph % (Auto) 2.9 % (21.0-51.0) L 02/07/20 05:45 [place] % (Auto) 4.1 % (0.0-13.0) 02/07/20 05:45 Eos % (Auto) 0.2 % (0.9-2.9) L 02/07/20 05:45 Baso % (Auto) 0.2 % (0.2-1.0) 02/07/20 05:45 Neut # (Auto) 14.9 x10^3/uL (2.2-4.8) H 02/07/20 05:45 Lymph # (Auto) 0.5 X10^3/uL (1.3-2.9) L 02/07/20 05:45 [place] # (Auto) 0.7 x10^3/uL (0.3-0.8) 02/07/20 05:45 Eos # (Auto) 0.0 x10^3/uL (0.0-0.2) 02/07/20 05:45 Baso # (Auto) 0.0 X10^3/uL (0.0-0.1) 02/07/20 05:45 Absolute Nucleated RBC 0.0 /100WBC 02/07/20 05:45 Total Counted 100 02/07/20 05:45 Neutrophils % (Manual) 90 % (39-76) H 02/07/20 05:45 Band Neutrophils % 2 % (0-10) 02/06/20 05:40 Lymphocytes % (Manual) 8 % (13-43) L 02/07/20 05:45 Monocytes % (Manual) 2 % (4-9) L 02/07/20 05:45 Plt Morphology Comment Normal (NORMAL) 02/07/20 05:45 RBC Morphology Normal (NORMAL) 02/07/20 05:45 Sample Site Left radial 02/05/20 10:57 ABG pH 7.420 (7.35-7.45) 02/05/20 10:57 ABG pCO2 31.0 mmHg (35.0-45.0) L 02/05/20 10:57 ABG pO2 60.0 mmHg (80.0-100.0) L 02/05/20 10:57 ABG HCO3 20.1 mmol/L (22-26) L 02/05/20 10:57 ABG O2 Saturation 91.0 % (90-100) 02/05/20 10:57 ABG Base Excess -3.5 mmol/L (-2.0-2.0) L 02/05/20 10:57 Greg Test Pos 02/05/20 10:57 A-a Gradient 51.0 mmHg 02/05/20 10:57 FiO2 21.0 02/05/20 10:57 Blood Gas Comments Yoan well cb 02/05/20 10:57 Sodium 138 mmol/L (136-145) 02/07/20 05:45 Corrected Sodium 139 mmol/L (136-145) 02/07/20 05:45 Potassium 3.1 mmol/L (3.5-5.1) L 02/07/20 05:45 Chloride 104 mmol/L (98-107) 02/07/20 05:45 Carbon Dioxide 23.5 mmol/L (21-32) 02/07/20 05:45 BUN 7 mg/dL (7-18) 02/07/20 05:45 Creatinine 1.38 mg/dL (0.70-1.30) H 02/07/20 05:45 Est GFR (MDRD) Af Amer > 60 (>60) 02/07/20 05:45 Est GFR (MDRD) Non-Af 54 (>60) L 02/07/20 05:45 Glucose 123 mg/dL (65-99) H 02/07/20 05:45 Calcium 8.4 mg/dL (8.5-10.1) L 02/07/20 05:45 Corrected Calcium 10.2 mg/dL (8.5-10.1) H 02/07/20 05:45 Magnesium 1.9 mg/dL (1.7-2.9) 02/07/20 05:45 Total Bilirubin 0.30 mg/dL (0.2-1.0) 02/07/20 05:45 AST 28 Units/L (15-37) 02/07/20 05:45 ALT 6 Units/L (12-78) L 02/07/20 05:45 Alkaline Phosphatase 54 Units/L (46-116) 02/07/20 05:45 Total Protein 6.9 g/dL (6.4-8.2) 02/07/20 05:45 Albumin 1.8 g/dL (3.4-5.0) L 02/07/20 05:45 Globulin 5.1 g/dL (2.5-4.5) H 02/07/20 05:45 Albumin/Globulin Ratio 0.4 Ratio (1.1-2.1) L 02/07/20 05:45 Amylase 101 Units/L (25-115) 02/03/20 10:05 Lipase 76 Units/L (73-393) 02/03/20 10:05 Specimen Type Clean catch urine 02/03/20 16:45 Urine Color Yellow (YELLOW) 02/03/20 16:45 Urine Appearance Clear (CLEAR) 02/03/20 16:45 Urine pH 5.0 (5.0 - 8.0) 02/03/20 16:45 Ur Specific [place] 1.015 (1.000-1.030) 02/03/20 16:45 Urine Protein 2+ (NEGATIVE) 02/03/20 16:45 Urine Glucose (UA) Negative (NEGATIVE) 02/03/20 16:45 Urine Ketones Negative (NEGATIVE) 02/03/20 16:45 Urine Occult Blood 3+ (NEGATIVE) 02/03/20 16:45 Urine Nitrite Negative (NEGATIVE) 02/03/20 16:45 Urine Bilirubin Negative (NEGATIVE) 02/03/20 16:45 Urine Urobilinogen Normal (NORMAL) 02/03/20 16:45 Ur Leukocyte Esterase Negative (NEGATIVE) 02/03/20 16:45 Urine RBC 0-2 /HPF (0-3) 02/03/20 16:45 Urine WBC 0-2 /HPF (0-5) 02/03/20 16:45 Ur Squamous Epith Cells Rare /HPF (NEGATIVE) 02/03/20 16:45 Urine Bacteria Negative /HPF (NEGATIVE) 02/03/20 16:45 Ur Culture Indicated? No/not indicated 02/03/20 16:45 SARS-CoV-2 (PCR) Negative (NEGATIVE) 02/03/20 13:16 Tissue Pathology To follow 02/03/20 19:30 - Plan (1) Acute appendicitis Status: Acute Qualifiers: Acute appendicitis type: unspecified acute appendicitis type Qualified Code(s): K35.80 - Unspecified acute appendicitis Plan: STATUS POST APPENDECTOMY, D5 1/2NS AT 150 ML/HR, LOVENOX 30MG SC DAILY AFTER SURGERY, FLAGYL 500MG IV Q8H, ZOSYN 3.375G IV TID, DILAUDID 1MG IV Q4H PRN PAIN, MORPHINE 2MG IV Q4H PRN PAIN, ZOFRAN 4MG IV Q8H PRN NAUSEA, PROTONIX 40MG IV DAILY, AND HIS HOME MEDICATIONS OF NORVASC, NEURONTIN, ZESTRIL, PRILOSEC, AND ZOCOR WERE RESUMED. (2) Pneumonia Status: Acute Qualifiers: Pneumonia type: due to unspecified organism Laterality: bilateral Lung location: unspecified part of lung Qualified Code(s): J18.9 - Pneumonia, unspecified organism (3) Peritonitis Status: Acute (4) Ileus Status: Acute
[2020-02-07] MEDS: K-DUR TAB 20 MEQ PO PRN (11:30)
[2020-02-07] MEDS: FLEET ENEMA ADULT PR ONE ×2 (15:32→17:00)
[2020-02-07] MEDS: ZOFRAN INJ 4 MG VIAL IVP PRN (15:32)
[2020-02-07] MEDS ORDERED: FLEET ENEMA ADULT ONE (16:43)
[2020-02-07] MEDS: ZOCOR TAB 40 MG PO SCH (21:59)
[2020-02-08] MEDS: D5 1/2 NS 1000 ML 1,000 ML IV SCH (03:30)
[2020-02-08] MEDS: FLAGYL IV PREMIX 500 MG BAG 500 MG/100 ML BAG IV SCH ×3 (05:15→21:00)
--- NOTE | 2020-02-08 05:51 | RAD ---
HISTORYSOBSTUDYCHEST, 1 [id number]/12/2020FINDINGSThe trachea is midline. The cardiac silhouette is stable. Perihilar edema/infiltrates, slightly increased compared to prior exam. Small right pleural effusion has developed in the interval. Right greater than left basilar atelectasis/infiltrates.. The bony thorax is unremarkable.IMPRESSIONInterval increase in perihilar infiltrates/edema.Small right pleural effusion.Electronically signed by: Radha Carranza (Feb 08, 2020 05:49:27)
[2020-02-08] MEDS: ZOSYN VIAL 3.375 GRAMS 3.375 G in NS 100 ML IV + SPIKE MINIBAG* 100 ML IV SCH ×3 (06:15→22:11)
[2020-02-08 07:04] LABS: BASOPHILS % (AUTO) 0.3 % (0.2-1.0); EOSINOPHILS # (AUTO) 0.1 x10^3/uL (0.0-0.2); EOSINOPHILS % (AUTO) 0.6 % (0.9-2.9); HEMATOCRIT 32.9 % (42.0-54.0); HEMOGLOBIN 10.9 g/dL (13.5-18.0); LYMPHOCYTES # (AUTO) 0.6 X10^3/uL (1.3-2.9); LYMPHOCYTES % (AUTO) 4.9 % (21.0-51.0); MEAN CORPUSCULAR HEMOGLOBIN 30.7 pg (27.0-34.0); MEAN CORPUSCULAR HGB CONC 33.3 g/dL (33.0-35.0); MEAN CORPUSCULAR VOLUME 92.3 fL (80.0-100.0); MEAN PLATELET VOLUME 7.8 fL (7.4-11.0); MONOCYTES % (AUTO) 8.4 % (0.0-13.0); NEUTROPHILS # (AUTO) 9.9 x10^3/uL (2.2-4.8); NEUTROPHILS % (AUTO) 85.8 % (42.0-75.0); PLATELET COUNT 249 X10^3/uL (150.0-450.0); RED BLOOD COUNT 3.57 X10^6/uL (4.7-6.0); RED CELL DISTRIBUTION WIDTH 14.5 % (11.6-16.5); WHITE BLOOD COUNT 11.5 X10^3/uL (3.6-10.0)
[2020-02-08 07:15] LABS: ALANINE AMINOTRANSFERASE 14 Units/L (12-78); ALBUMIN 1.7 g/dL (3.4-5.0); ALKALINE PHOSPHATASE 61 Units/L (46-116); ASPARTATE AMINO TRANSFERASE 29 Units/L (15-37); BLOOD UREA NITROGEN 5 mg/dL (7-18); CALCIUM 8.2 mg/dL (8.5-10.1); CARBON DIOXIDE 23.1 mmol/L (21-32); CHLORIDE 105 mmol/L (98-107); COR NA(FOR HYPERGLY) 138 mmol/L (136-145); SODIUM 138 mmol/L (136-145); TOTAL PROTEIN 6.8 g/dL (6.4-8.2); eGFR NON BLACK RACES 53 (>60)
[2020-02-08] MEDS: XOPENEX 1.25 MG/3 ML NEBULE NEB SCH ×4 (08:29→20:29)
[2020-02-08] MEDS ORDERED: ZESTRIL TAB 20 MG ONE ×2 (08:44→19:57)
[2020-02-08] MEDS: EFFEXOR TAB 75 MG (BID DOSING) PO SCH (09:59)
[2020-02-08] MEDS: PEPCID 20 MG IV PREMIX* 20 MG/50 ML BAG IV SCH (10:00)
[2020-02-08] MEDS: PriLOSEC PO SCH (10:00)
[2020-02-08] MEDS: NEURONTIN CAP 100 MG PO SCH ×2 (10:00→20:21)
[2020-02-08] MEDS: NORVASC TAB 5 MG PO SCH (10:00)
[2020-02-08] MEDS: ZESTRIL TAB 20 MG PO SCH ×2 (10:00→20:21)
[2020-02-08] MEDS: PROTONIX INJ 40 MG VIAL IVP SCH (10:00)
[2020-02-08] MEDS: LOVENOX INJ 40 MG SYR SC SCH (10:01)
[2020-02-08] MEDS: MAGNESIUM SULFATE 1 GRAM/100 mL PREMIX 1 GM/100 ML BAG IV PRN ×2 (10:07→22:30)
--- NOTE | 2020-02-08 10:33 | RAD ---
HISTORYILEUS, ABD [id number]/12/2020FINDINGSThere is gas throughout stomach, small bowel and large bowel. But it is not dilated like on the prior study. I believe this represents improved paralytic il eus.I believe I can identify the inner and outer wall of the right colon. This sometimes suggests pne umoperitoneum. But it would not be atypical to have a small amount of pneumoperitoneum this early in postoperative state. This could be artifactual from contrast in the bowel.Surgical clips are noted in abdomen. Degenerative changes in the spine.IMPRESSION1. Improved paralytic ileusElectronically konrad d by: Hussein Shah (Feb 08, 2020 10:32:02)
--- NOTE | 2020-02-08 10:42 | PCM.PROG ---
Progress Note - Progress Note for Day of Date of Exam: 02/08/20 - Subjective Subjective: WAS ADMITTED FOR PNEUMONIA, ACUTE APPENDICITIS WITH PERITONITIS, AND ILEUS. HE IS DAY 5 STATUS POST LAPROSCOPIC APPENDECTOMY. HE CONTINUES WITH COMPLAINTS OF SHORTNESS OF BREATH THIS MORNING. HE DOES REPORT SLIGHT IMPROVEMENT IN ABDOMINAL PAIN. ON EXAMINATION, HEART IS REGULAR IN RATE AND RHYTHM. BILATERAL LUNGS ARE NOTED WITH DIMINISHED LUNG SOUNDS THROUGHOUT. ABDOMEN IS DISTENDED AND NOTED WITH SURGICAL DRESSINGS AND A RACHEL DRAIN. HYPOACTIVE BOWEL SOUNDS NOTED. HIS VITALS THIS MORNING ARE: 98.0-90-18-96%NC-119/65. LABS WERE OBTAINED. ABNORMAL LAB VALUES INCLUDE THE FOLLOWING: WBC 11.5, RBD 3.57, HGB 10.9, HCT 32.9, POTASSIUM 2.9, BUN 5, CREATININE 1.40, GLUCOSE 112, CALCIUM 8.2, MAGNESIUM 1.6, ALBUMIN 1.7, GLOBULIN 5.1. BLOOD CULTURES ARE PENDING. A CHEST XRAY WAS OBTAINED AND REVEALED: Interval increase in perihilar infiltrates/edema. Small right pleural effusion. A KUB WAS OBTAINED AND REVEALED: Improved paralytic ileus. HE IS CURRENTLY RECEIVING D5 1/2NS AT 150 ML/HR, LOVENOX 30MG SC DAILY AFTER SURGERY, FLAGYL 500MG IV Q8H, ZOSYN 3.375G IV TID, DILAUDID 1MG IV Q4H PRN PAIN, MORPHINE 2MG IV Q4H PRN PAIN, ZOFRAN 4MG IV Q8H PRN NAUSEA, PROTONIX 40MG IV DAILY, PEPCID 20MG IV DAILY, AND HIS HOME MEDICATIONS OF NORVASC, NEURONTIN, ZESTRIL, PRILOSEC, AND ZOCOR WERE RESUMED. WILL CONTINUE TO MONITOR PATIENT. PHYSICAL AND OCCUPATIONAL THERAPIES WILL CONTINUE TO WORK WITH PATIENT TODAY. WE WILL OBTAIN AN ABG TODAY AND START ALBUMIN 25% IV DAILY. OTHERWISE, WE WILL FOLLOW UP WITH AM LABS AND CONTINUE TO MONITOR. - Past Medical Family Social History Past Med/Fam/Surg Hx: No changes since H&P Allergies: Allergies No Known Drug Allergies Allergy (Verified 02/03/20 14:02) - Review of Systems ROS: No change since H&P - Vital Signs and I&O's Vital Signs: Temperature 98.6 F Pulse Rate [Left Brachial] 88 Pulse Rate [Right Brachial] 90 Pulse Rate 86 Respiratory Rate 18 Blood Pressure [Left Arm] 122/74 Blood Pressure [Right Arm] 119/65 Blood Pressure 98/59 O2 Sat by Pulse Oximetry 92 Intake and Output: Intake & Output 02/05/20 02/06/20 1102/08/20 11:59 11:59 11:59 11:59 Intake Total 2080 / 2080 2450 / 2450 3407 / 3407 2290 / 2290 Output Total 1125 / 1125 920 / 920 2035 / 2035 1315 / 1315 Balance 955 / 955 1530 / 1530 1372 / 1372 975 / 975 - Physical Exam Oriented: Normal Eyes: Normal Ear: Normal Nose: Normal Throat: Normal Respiratory: Diminished Cardiovascular: Normal : Normal Auscultation: Bowel Sounds: Decreased Tenderness: Diffuse (distended abdomen with diffuse tenderness . BS hypoactive ), Mild Skin: Normal Musculoskeletal: Normal Psychiatric: Normal Mood Description: Calm Affect: Normal Speech Pattern: Clear, Appropriate, Delayed - Laboratory and Diagnostics Result Diagrams: 02/08/20 06:20 02/08/20 06:20 Labs: 02/04/20 09:05 Blood Blood Culture - Preliminary 02/04/20 08:57 Blood Blood Culture - Preliminary Laboratory WBC 11.5 X10^3/uL (3.6-10.0) H 02/08/20 06:20 RBC 3.57 X10^6/uL (4.7-6.0) L 02/08/20 06:20 Hgb 10.9 g/dL (13.5-18.0) L 02/08/20 06:20 Hct 32.9 % (42.0-54.0) L 02/08/20 06:20 MCV 92.3 fL (80.0-100.0) 02/08/20 06:20 MCH 30.7 pg (27.0-34.0) 02/08/20 06:20 MCHC 33.3 g/dL (33.0-35.0) 02/08/20 06:20 RDW 14.5 % (11.6-16.5) 02/08/20 06:20 Plt Count 249 X10^3/uL (150.0-450.0) 02/08/20 06:20 Plt Count Comment Adequate (ADEQUATE) 02/07/20 05:45 MPV 7.8 fL (7.4-11.0) 02/08/20 06:20 Neut % (Auto) 85.8 % (42.0-75.0) H 02/08/20 06:20 Lymph % (Auto) 4.9 % (21.0-51.0) L 02/08/20 06:20 [place] % (Auto) 8.4 % (0.0-13.0) 02/08/20 06:20 Eos % (Auto) 0.6 % (0.9-2.9) L 02/08/20 06:20 Baso % (Auto) 0.3 % (0.2-1.0) 02/08/20 06:20 Neut # (Auto) 9.9 x10^3/uL (2.2-4.8) H 02/08/20 06:20 Lymph # (Auto) 0.6 X10^3/uL (1.3-2.9) L 02/08/20 06:20 [place] # (Auto) 1.0 x10^3/uL (0.3-0.8) H 02/08/20 06:20 Eos # (Auto) 0.1 x10^3/uL (0.0-0.2) 02/08/20 06:20 Baso # (Auto) 0.0 X10^3/uL (0.0-0.1) 02/08/20 06:20 Absolute Nucleated RBC 0.0 /100WBC 02/08/20 06:20 Total Counted 100 02/07/20 05:45 Neutrophils % (Manual) 90 % (39-76) H 02/07/20 05:45 Band Neutrophils % 2 % (0-10) 02/06/20 05:40 Lymphocytes % (Manual) 8 % (13-43) L 02/07/20 05:45 Monocytes % (Manual) 2 % (4-9) L 02/07/20 05:45 Plt Morphology Comment Normal (NORMAL) 02/07/20 05:45 RBC Morphology Normal (NORMAL) 02/07/20 05:45 Sample Site Left radial 02/05/20 10:57 ABG pH 7.420 (7.35-7.45) 02/05/20 10:57 ABG pCO2 31.0 mmHg (35.0-45.0) L 02/05/20 10:57 ABG pO2 60.0 mmHg (80.0-100.0) L 02/05/20 10:57 ABG HCO3 20.1 mmol/L (22-26) L 02/05/20 10:57 ABG O2 Saturation 91.0 % (90-100) 02/05/20 10:57 ABG Base Excess -3.5 mmol/L (-2.0-2.0) L 02/05/20 10:57 Greg Test Pos 02/05/20 10:57 A-a Gradient 51.0 mmHg 02/05/20 10:57 FiO2 21.0 02/05/20 10:57 Blood Gas Comments Yoan well cb 02/05/20 10:57 Sodium 138 mmol/L (136-145) 02/08/20 06:20 Corrected Sodium 138 mmol/L (136-145) 02/08/20 06:20 Potassium 2.9 mmol/L (3.5-5.1) L* 02/08/20 06:20 Chloride 105 mmol/L (98-107) 02/08/20 06:20 Carbon Dioxide 23.1 mmol/L (21-32) 02/08/20 06:20 BUN 5 mg/dL (7-18) L 02/08/20 06:20 Creatinine 1.40 mg/dL (0.70-1.30) H 02/08/20 06:20 Est GFR (MDRD) Af Amer > 60 (>60) 02/08/20 06:20 Est GFR (MDRD) Non-Af 53 (>60) L 02/08/20 06:20 Glucose 112 mg/dL (65-99) H 02/08/20 06:20 Calcium 8.2 mg/dL (8.5-10.1) L 02/08/20 06:20 Corrected Calcium 10.0 mg/dL (8.5-10.1) 02/08/20 06:20 Magnesium 1.6 mg/dL (1.7-2.9) L 02/08/20 06:20 Total Bilirubin 0.30 mg/dL (0.2-1.0) 02/08/20 06:20 AST 29 Units/L (15-37) 02/08/20 06:20 ALT 14 Units/L (12-78) 02/08/20 06:20 Alkaline Phosphatase 61 Units/L (46-116) 02/08/20 06:20 Total Protein 6.8 g/dL (6.4-8.2) 02/08/20 06:20 Albumin 1.7 g/dL (3.4-5.0) L 02/08/20 06:20 Globulin 5.1 g/dL (2.5-4.5) H 02/08/20 06:20 Albumin/Globulin Ratio 0.3 Ratio (1.1-2.1) L 02/08/20 06:20 Amylase 101 Units/L (25-115) 02/03/20 10:05 Lipase 76 Units/L (73-393) 02/03/20 10:05 Specimen Type Clean catch urine 02/03/20 16:45 Urine Color Yellow (YELLOW) 02/03/20 16:45 Urine Appearance Clear (CLEAR) 02/03/20 16:45 Urine pH 5.0 (5.0 - 8.0) 02/03/20 16:45 Ur Specific [place] 1.015 (1.000-1.030) 02/03/20 16:45 Urine Protein 2+ (NEGATIVE) 02/03/20 16:45 Urine Glucose (UA) Negative (NEGATIVE) 02/03/20 16:45 Urine Ketones Negative (NEGATIVE) 02/03/20 16:45 Urine Occult Blood 3+ (NEGATIVE) 02/03/20 16:45 Urine Nitrite Negative (NEGATIVE) 02/03/20 16:45 Urine Bilirubin Negative (NEGATIVE) 02/03/20 16:45 Urine Urobilinogen Normal (NORMAL) 02/03/20 16:45 Ur Leukocyte Esterase Negative (NEGATIVE) 02/03/20 16:45 Urine RBC 0-2 /HPF (0-3) 02/03/20 16:45 Urine WBC 0-2 /HPF (0-5) 02/03/20 16:45 Ur Squamous Epith Cells Rare /HPF (NEGATIVE) 02/03/20 16:45 Urine Bacteria Negative /HPF (NEGATIVE) 02/03/20 16:45 Ur Culture Indicated? No/not indicated 02/03/20 16:45 SARS-CoV-2 (PCR) Negative (NEGATIVE) 02/03/20 13:16 Tissue Pathology To follow 02/03/20 19:30 - Plan (1) Acute appendicitis Status: Acute Qualifiers: Acute appendicitis type: unspecified acute appendicitis type Qualified Code(s): K35.80 - Unspecified acute appendicitis Plan: STATUS POST APPENDECTOMY, D5 1/2NS AT 150 ML/HR, LOVENOX 30MG SC DAILY AFTER SURGERY, FLAGYL 500MG IV Q8H, ZOSYN 3.375G IV TID, DILAUDID 1MG IV Q4H PRN PAIN, MORPHINE 2MG IV Q4H PRN PAIN, ZOFRAN 4MG IV Q8H PRN NAUSEA, PROTONIX 40MG IV DAILY, AND HIS HOME MEDICATIONS OF NORVASC, NEURONTIN, ZESTRIL, PRILOSEC, AND ZOCOR WERE RESUMED. (2) Pneumonia Status: Acute Qualifiers: Pneumonia type: due to unspecified organism Laterality: bilateral Lung lo cation: unspecified part of lung Qualified Code(s): J18.9 - Pneumonia, unspecified organism (3) Peritonitis Status: Acute (4) Ileus Status: Acute
[2020-02-08 11:43] LABS: ABG ALLEN TEST POS; ABG BASE EXCESS 0.2 mmol/L (-2.0-2.0); ABG HCO3 23.3 mmol/L (22-26)
[2020-02-08] MEDS: ALBUMIN HUMAN 25%- 100 ML 100 ML IV SCH (14:37)
[2020-02-08] MEDS ORDERED: K-RIDER 10 MEQ/NS 100 ML 20 MEQ/200 ML BAG IV ONE (14:44)
[2020-02-08] MEDS ORDERED: K-RIDER 10 MEQ/NS 100 ML 10 MEQ/100 ML BAG IV ONE ×2 (14:46→14:47)
--- NOTE | 2020-02-08 14:50 | DR.PROGNOT ---
Hospital Progress Notes - Progress Note for Day of: Progress Note Date: 02/08/20 - Chief Complaint Chief Complaint: Post op day 5. having frequent BMs and passing flatus. still having moderate abdominal distention. WBC 11.5 . K 2.9. bun 7 creatinin 1.40. tempo 98.6 - Past Medical Family Social History Past Med/Fam/Surg Hx: No changes since H&P Allergies: Allergies No Known Drug Allergies Allergy (Verified 02/03/20 14:02) - Review Of Systems ROS: No change since H&P - Vital Signs Vital Signs: Temperature 97.8 F Pulse Rate [Left Brachial] 88 Pulse Rate [Right Brachial] 90 Pulse Rate 86 Respiratory Rate 20 Blood Pressure [Left Arm] 111/68 Blood Pressure [Right Arm] 119/65 Blood Pressure 98/59 O2 Sat by Pulse Oximetry 98 - Physical Exam Oriented: Normal Eyes: Normal Ear: Normal Nose: Normal Throat: Normal Respiratory: Diminished Cardiovascular: Normal : Normal GI:Auscultation: Decreased GI:Palpation: Normal GI: Tenderness: Diffuse (distended abdomen with diffuse tenderness . BS hypoactive ), Mild Skin: Normal Musculoskeletal: Normal Psychiatric: Normal Mood Description: Calm Affect: Normal Speech Pattern: Clear, Appropriate, Delayed - Laboratory and Diagnostics Result Diagrams: 02/08/20 06:20 02/08/20 06:20 Labs: 02/04/20 09:05 Blood Blood Culture - Preliminary 02/04/20 08:57 Blood Blood Culture - Preliminary Laboratory WBC 11.5 X10^3/uL (3.6-10.0) H 02/08/20 06:20 RBC 3.57 X10^6/uL (4.7-6.0) L 02/08/20 06:20 Hgb 10.9 g/dL (13.5-18.0) L 02/08/20 06:20 Hct 32.9 % (42.0-54.0) L 02/08/20 06:20 MCV 92.3 fL (80.0-100.0) 02/08/20 06:20 MCH 30.7 pg (27.0-34.0) 02/08/20 06:20 MCHC 33.3 g/dL (33.0-35.0) 02/08/20 06:20 RDW 14.5 % (11.6-16.5) 02/08/20 06:20 Plt Count 249 X10^3/uL (150.0-450.0) 02/08/20 06:20 Plt Count Comment Adequate (ADEQUATE) 02/07/20 05:45 MPV 7.8 fL (7.4-11.0) 02/08/20 06:20 Neut % (Auto) 85.8 % (42.0-75.0) H 02/08/20 06:20 Lymph % (Auto) 4.9 % (21.0-51.0) L 02/08/20 06:20 [place] % (Auto) 8.4 % (0.0-13.0) 02/08/20 06:20 Eos % (Auto) 0.6 % (0.9-2.9) L 02/08/20 06:20 Baso % (Auto) 0.3 % (0.2-1.0) 02/08/20 06:20 Neut # (Auto) 9.9 x10^3/uL (2.2-4.8) H 02/08/20 06:20 Lymph # (Auto) 0.6 X10^3/uL (1.3-2.9) L 02/08/20 06:20 [place] # (Auto) 1.0 x10^3/uL (0.3-0.8) H 02/08/20 06:20 Eos # (Auto) 0.1 x10^3/uL (0.0-0.2) 02/08/20 06:20 Baso # (Auto) 0.0 X10^3/uL (0.0-0.1) 02/08/20 06:20 Absolute Nucleated RBC 0.0 /100WBC 02/08/20 06:20 Total Counted 100 02/07/20 05:45 Neutrophils % (Manual) 90 % (39-76) H 02/07/20 05:45 Band Neutrophils % 2 % (0-10) 02/06/20 05:40 Lymphocytes % (Manual) 8 % (13-43) L 02/07/20 05:45 Monocytes % (Manual) 2 % (4-9) L 02/07/20 05:45 Plt Morphology Comment Normal (NORMAL) 02/07/20 05:45 RBC Morphology Normal (NORMAL) 02/07/20 05:45 Sample Site Rr 02/08/20 11:38 ABG pH 7.470 (7.35-7.45) H 02/08/20 11:38 ABG pCO2 32.0 mmHg (35.0-45.0) L 02/08/20 11:38 ABG pO2 75.0 mmHg (80.0-100.0) L 02/08/20 11:38 ABG HCO3 23.3 mmol/L (22-26) 02/08/20 11:38 ABG O2 Saturation 96.0 % (90-100) 02/08/20 11:38 ABG Base Excess 0.2 mmol/L (-2.0-2.0) 02/08/20 11:38 Greg Test Pos 02/08/20 11:38 A-a Gradient 85.0 mmHg 02/08/20 11:38 FiO2 28.0 02/08/20 11:38 Blood Gas Comments Yoan well, gmb 02/08/20 11:38 Sodium 138 mmol/L (136-145) 02/08/20 06:20 Corrected Sodium 138 mmol/L (136-145) 02/08/20 06:20 Potassium 2.9 mmol/L (3.5-5.1) L* 02/08/20 06:20 Chloride 105 mmol/L (98-107) 02/08/20 06:20 Carbon Dioxide 23.1 mmol/L (21-32) 02/08/20 06:20 BUN 5 mg/dL (7-18) L 02/08/20 06:20 Creatinine 1.40 mg/dL (0.70-1.30) H 02/08/20 06:20 Est GFR (MDRD) Af Amer > 60 (>60) 02/08/20 06:20 Est GFR (MDRD) Non-Af 53 (>60) L 02/08/20 06:20 Glucose 112 mg/dL (65-99) H 02/08/20 06:20 Calcium 8.2 mg/dL (8.5-10.1) L 02/08/20 06:20 Corrected Calcium 10.0 mg/dL (8.5-10.1) 02/08/20 06:20 Magnesium 1.6 mg/dL (1.7-2.9) L 02/08/20 06:20 Total Bilirubin 0.30 mg/dL (0.2-1.0) 02/08/20 06:20 AST 29 Units/L (15-37) 02/08/20 06:20 ALT 14 Units/L (12-78) 02/08/20 06:20 Alkaline Phosphatase 61 Units/L (46-116) 02/08/20 06:20 Total Protein 6.8 g/dL (6.4-8.2) 02/08/20 06:20 Albumin 1.7 g/dL (3.4-5.0) L 02/08/20 06:20 Globulin 5.1 g/dL (2.5-4.5) H 02/08/20 06:20 Albumin/Globulin Ratio 0.3 Ratio (1.1-2.1) L 02/08/20 06:20 Amylase 101 Units/L (25-115) 02/03/20 10:05 Lipase 76 Units/L (73-393) 02/03/20 10:05 Specimen Type Clean catch urine 02/03/20 16:45 Urine Color Yellow (YELLOW) 02/03/20 16:45 Urine Appearance Clear (CLEAR) 02/03/20 16:45 Urine pH 5.0 (5.0 - 8.0) 02/03/20 16:45 Ur Specific [place] 1.015 (1.000-1.030) 02/03/20 16:45 Urine Protein 2+ (NEGATIVE) 02/03/20 16:45 Urine Glucose (UA) Negative (NEGATIVE) 02/03/20 16:45 Urine Ketones Negative (NEGATIVE) 02/03/20 16:45 Urine Occult Blood 3+ (NEGATIVE) 02/03/20 16:45 Urine Nitrite Negative (NEGATIVE) 02/03/20 16:45 Urine Bilirubin Negative (NEGATIVE) 02/03/20 16:45 Urine Urobilinogen Normal (NORMAL) 02/03/20 16:45 Ur Leukocyte Esterase Negative (NEGATIVE) 02/03/20 16:45 Urine RBC 0-2 /HPF (0-3) 02/03/20 16:45 Urine WBC 0-2 /HPF (0-5) 02/03/20 16:45 Ur Squamous Epith Cells Rare /HPF (NEGATIVE) 02/03/20 16:45 Urine Bacteria Negative /HPF (NEGATIVE) 11/08/20 16:45 Ur Culture Indicated? No/not indicated 02/03/20 16:45 SARS-CoV-2 (PCR) Negative (NEGATIVE) 02/03/20 13:16 Tissue Pathology To follow 02/03/20 19:30 - Assessment and Plan 1: Post Op lap appendectomy for perforated appendicitis with peritonitis . improving ileus. pneumonia. CKD .HTN . old CVA. same IV ATB .DVT prophylaxis .correction of hypokalemia . fleet enemas. full liquid . keep RACHEL. OOB . - Problem Patient Problems: Patient Problems Acute appendicitis (Acute) K35.80 Pneumonia (Acute) J18.9 Ileus (Acute) K56.7 Peritonitis (Acute) K65.9
[2020-02-08] MEDS: ZOCOR TAB 40 MG PO SCH (20:21)
[2020-02-08] MEDS: K-DUR TAB 20 MEQ PO PRN (22:31)
[2020-02-09] MEDS: FLAGYL IV PREMIX 500 MG BAG 500 MG/100 ML BAG IV SCH ×3 (05:25→21:04)
[2020-02-09] MEDS: D5 1/2 NS 1000 ML 1,000 ML IV SCH ×3 (05:36→20:14)
[2020-02-09 06:06] LABS: BASOPHILS % (AUTO) 0.2 % (0.2-1.0); EOSINOPHILS # (AUTO) 0.1 x10^3/uL (0.0-0.2); EOSINOPHILS % (AUTO) 1.3 % (0.9-2.9); HEMATOCRIT 32.2 % (42.0-54.0); HEMOGLOBIN 10.9 g/dL (13.5-18.0); LYMPHOCYTES # (AUTO) 0.7 X10^3/uL (1.3-2.9); LYMPHOCYTES % (AUTO) 7.3 % (21.0-51.0); MEAN CORPUSCULAR HEMOGLOBIN 31.3 pg (27.0-34.0); MEAN CORPUSCULAR HGB CONC 33.8 g/dL (33.0-35.0); MEAN CORPUSCULAR VOLUME 92.6 fL (80.0-100.0); MEAN PLATELET VOLUME 7.8 fL (7.4-11.0); MONOCYTES # (AUTO) 1.1 x10^3/uL (0.3-0.8); MONOCYTES % (AUTO) 11.5 % (0.0-13.0); NEUTROPHILS # (AUTO) 7.7 x10^3/uL (2.2-4.8); NEUTROPHILS % (AUTO) 79.7 % (42.0-75.0); PLATELET COUNT 298 X10^3/uL (150.0-450.0); RED BLOOD COUNT 3.47 X10^6/uL (4.7-6.0); RED CELL DISTRIBUTION WIDTH 14.3 % (11.6-16.5); WHITE BLOOD COUNT 9.6 X10^3/uL (3.6-10.0)
[2020-02-09 06:23] LABS: ALANINE AMINOTRANSFERASE 18 Units/L (12-78); ALBUMIN 2.2 g/dL (3.4-5.0); ALKALINE PHOSPHATASE 65 Units/L (46-116); ASPARTATE AMINO TRANSFERASE 42 Units/L (15-37); BLOOD UREA NITROGEN 7 mg/dL (7-18); CALCIUM 8.5 mg/dL (8.5-10.1); CARBON DIOXIDE 23.6 mmol/L (21-32); CHLORIDE 103 mmol/L (98-107); COR CA(FOR HYPOALB) 9.9 mg/dL (8.5-10.1); CREATININE 1.43 mg/dL (0.70-1.30); MAGNESIUM 1.8 mg/dL (1.7-2.9); SODIUM 135 mmol/L (136-145); eGFR NON BLACK RACES 51 (>60)
[2020-02-09] MEDS: ZOSYN VIAL 3.375 GRAMS 3.375 G in NS 100 ML IV + SPIKE MINIBAG* 100 ML IV SCH ×3 (06:40→21:06)
--- NOTE | 2020-02-09 06:58 | RAD ---
HISTORYSOB hypertensionSTUDYAP [id number] borderline cardiomegaly. Pulmonary vascular dilatation with mixed interstitial-airspace infiltrates. Suspect right pleural effusion. No pneumothorax seen.IMPRESSIONStable cardiac prominence with pulmonary vascular congestion and increasing pulmonary edema. Probable right pleural effusion.Electronically signed by: SIMONA ROSALES (Feb 09, 2020 06:56:34)
[2020-02-09] MEDS ORDERED: ZESTRIL TAB 20 MG ONE ×2 (09:22→19:23)
[2020-02-09] MEDS: ALBUMIN HUMAN 25%- 100 ML 100 ML IV SCH (09:24)
[2020-02-09] MEDS: ZESTRIL TAB 20 MG PO SCH ×2 (09:25→20:20)
[2020-02-09] MEDS: PROTONIX INJ 40 MG VIAL IVP SCH (09:25)
[2020-02-09] MEDS: EFFEXOR TAB 75 MG (BID DOSING) PO SCH (09:25)
[2020-02-09] MEDS: NEURONTIN CAP 100 MG PO SCH ×2 (09:26→20:19)
[2020-02-09] MEDS: NORVASC TAB 5 MG PO SCH (09:26)
[2020-02-09] MEDS: PriLOSEC PO SCH (09:26)
[2020-02-09] MEDS: PEPCID 20 MG IV PREMIX* 20 MG/50 ML BAG IV SCH (09:27)
[2020-02-09] MEDS: LOVENOX INJ 40 MG SYR SC SCH (09:28)
[2020-02-09] MEDS: K-DUR TAB 20 MEQ PO PRN (09:30)
[2020-02-09] MEDS: XOPENEX 1.25 MG/3 ML NEBULE NEB SCH ×4 (09:40→20:42)
[2020-02-09] MEDS: MAGNESIUM SULFATE 1 GRAM/100 mL PREMIX 1 GM/100 ML BAG IV PRN (10:40)
--- NOTE | 2020-02-09 11:34 | DR.PROGNOT ---
Hospital Progress Notes - Progress Note for Day of: Progress Note Date: 02/09/20 - Chief Complaint Chief Complaint: Post op day 6. feeling better today , tolerating diet , no vomiting. WBC 9.6. creat 1.43. temp 98.8 - Past Medical Family Social History Past Med/Fam/Surg Hx: No changes since H&P Allergies: Allergies No Known Drug Allergies Allergy (Verified 02/03/20 14:02) - Review Of Systems ROS: No change since H&P - Vital Signs Vital Signs: Temperature 99 F Pulse Rate [Left Brachial] 84 Pulse Rate [Right Brachial] 90 Pulse Rate 91 Respiratory Rate 20 Blood Pressure [Left Arm] 149/82 Blood Pressure [Right Arm] 127/72 Blood Pressure 98/59 O2 Sat by Pulse Oximetry 93 - Physical Exam Oriented: Normal Eyes: Normal Ear: Normal Nose: Normal Throat: Normal Respiratory: Diminished Cardiovascular: Normal : Normal GI:Auscultation: Decreased GI:Palpation: Normal GI: Tenderness: Diffuse (distended abdomen with diffuse tenderness . BS hypoactive ), Mild Skin: Normal Musculoskeletal: Normal Psychiatric: Normal Mood Description: Calm Affect: Normal Speech Pattern: Clear, Appropriate, Delayed - Laboratory and Diagnostics Result Diagrams: 02/09/20 05:36 02/09/20 05:36 Labs: 02/04/20 09:05 Blood Blood Culture - Preliminary 02/04/20 08:57 Blood Blood Culture - Preliminary Laboratory WBC 9.6 X10^3/uL (3.6-10.0) 02/09/20 05:36 RBC 3.47 X10^6/uL (4.7-6.0) L 02/09/20 05:36 Hgb 10.9 g/dL (13.5-18.0) L 02/09/20 05:36 Hct 32.2 % (42.0-54.0) L 02/09/20 05:36 MCV 92.6 fL (80.0-100.0) 02/09/20 05:36 MCH 31.3 pg (27.0-34.0) 02/09/20 05:36 MCHC 33.8 g/dL (33.0-35.0) 02/09/20 05:36 RDW 14.3 % (11.6-16.5) 02/09/20 05:36 Plt Count 298 X10^3/uL (150.0-450.0) 02/09/20 05:36 Plt Count Comment Adequate (ADEQUATE) 02/07/20 05:45 MPV 7.8 fL (7.4-11.0) 02/09/20 05:36 Neut % (Auto) 79.7 % (42.0-75.0) H 02/09/20 05:36 Lymph % (Auto) 7.3 % (21.0-51.0) L 02/09/20 05:36 [place] % (Auto) 11.5 % (0.0-13.0) 02/09/20 05:36 Eos % (Auto) 1.3 % (0.9-2.9) 02/09/20 05:36 Baso % (Auto) 0.2 % (0.2-1.0) 02/09/20 05:36 Neut # (Auto) 7.7 x10^3/uL (2.2-4.8) H 02/09/20 05:36 Lymph # (Auto) 0.7 X10^3/uL (1.3-2.9) L 02/09/20 05:36 [place] # (Auto) 1.1 x10^3/uL (0.3-0.8) H 02/09/20 05:36 Eos # (Auto) 0.1 x10^3/uL (0.0-0.2) 02/09/20 05:36 Baso # (Auto) 0.0 X10^3/uL (0.0-0.1) 02/09/20 05:36 Absolute Nucleated RBC 0.1 /100WBC 02/09/20 05:36 Total Counted 100 02/07/20 05:45 Neutrophils % (Manual) 90 % (39-76) H 02/07/20 05:45 Band Neutrophils % 2 % (0-10) 02/06/20 05:40 Lymphocytes % (Manual) 8 % (13-43) L 02/07/20 05:45 Monocytes % (Manual) 2 % (4-9) L 02/07/20 05:45 Plt Morphology Comment Normal (NORMAL) 02/07/20 05:45 RBC Morphology Normal (NORMAL) 02/07/20 05:45 Sample Site Rr 02/08/20 11:38 ABG pH 7.470 (7.35-7.45) H 02/08/20 11:38 ABG pCO2 32.0 mmHg (35.0-45.0) L 02/08/20 11:38 ABG pO2 75.0 mmHg (80.0-100.0) L 02/08/20 11:38 ABG HCO3 23.3 mmol/L (22-26) 02/08/20 11:38 ABG O2 Saturation 96.0 % (90-100) 02/08/20 11:38 ABG Base Excess 0.2 mmol/L (-2.0-2.0) 02/08/20 11:38 Greg Test Pos 02/08/20 11:38 A-a Gradient 85.0 mmHg 02/08/20 11:38 FiO2 28.0 02/08/20 11:38 Blood Gas Comments Yoan well, gmb 02/08/20 11:38 Sodium 135 mmol/L (136-145) L 02/09/20 05:36 Corrected Sodium TNP 02/09/20 05:36 Potassium 3.8 mmol/L (3.5-5.1) 02/09/20 05:36 Chloride 103 mmol/L (98-107) 02/09/20 05:36 Carbon Dioxide 23.6 mmol/L (21-32) 02/09/20 05:36 BUN 7 mg/dL (7-18) 02/09/20 05:36 Creatinine 1.43 mg/dL (0.70-1.30) H 02/09/20 05:36 Est GFR (MDRD) Af Amer > 60 (>60) 02/09/20 05:36 Est GFR (MDRD) Non-Af 51 (>60) L 02/09/20 05:36 Glucose 99 mg/dL (65-99) 02/09/20 05:36 Calcium 8.5 mg/dL (8.5-10.1) 02/09/20 05:36 Corrected Calcium 9.9 mg/dL (8.5-10.1) 02/09/20 05:36 Magnesium 1.8 mg/dL (1.7-2.9) 02/09/20 05:36 Total Bilirubin 0.40 mg/dL (0.2-1.0) 02/09/20 05:36 AST 42 Units/L (15-37) H 02/09/20 05:36 ALT 18 Units/L (12-78) 02/09/20 05:36 Alkaline Phosphatase 65 Units/L (46-116) 02/09/20 05:36 Total Protein 7.0 g/dL (6.4-8.2) 02/09/20 05:36 Albumin 2.2 g/dL (3.4-5.0) L 02/09/20 05:36 Globulin 4.8 g/dL (2.5-4.5) H 02/09/20 05:36 Albumin/Globulin Ratio 0.5 Ratio (1.1-2.1) L 02/09/20 05:36 Amylase 101 Units/L (25-115) 02/03/20 10:05 Lipase 76 Units/L (73-393) 02/03/20 10:05 Specimen Type Clean catch urine 02/03/20 16:45 Urine Color Yellow (YELLOW) 02/03/20 16:45 Urine Appearance Clear (CLEAR) 02/03/20 16:45 Urine pH 5.0 (5.0 - 8.0) 02/03/20 16:45 Ur Specific [place] 1.015 (1.000-1.030) 02/03/20 16:45 Urine Protein 2+ (NEGATIVE) 02/03/20 16:45 Urine Glucose (UA) Negative (NEGATIVE) 02/03/20 16:45 Urine Ketones Negative (NEGATIVE) 02/03/20 16:45 Urine Occult Blood 3+ (NEGATIVE) 02/03/20 16:45 Urine Nitrite Negative (NEGATIVE) 02/03/20 16:45 Urine Bilirubin Negative (NEGATIVE) 02/03/20 16:45 Urine Urobilinogen Normal (NORMAL) 02/03/20 16:45 Ur Leukocyte Esterase Negative (NEGATIVE) 02/03/20 16:45 Urine RBC 0-2 /HPF (0-3) 02/03/20 16:45 Urine WBC 0-2 /HPF (0-5) 02/03/20 16:45 Ur Squamous Epith Cells Rare /HPF (NEGATIVE) 02/03/20 16:45 Urine Bacteria Negative /HPF (NEGATIVE) 02/03/20 16:45 Ur Culture Indicated? No/not indicated 02/03/20 16:45 SARS-CoV-2 (PCR) Negative (NEGATIVE) 02/03/20 13:16 Tissue Pathology To follow 02/03/20 19:30 - Assessment and Plan 1: Post Op lap appendectomy for perforated appendicitis with peritonitis . improving ileus. lung congestion. CKD .HTN . old CVA. same IV ATB .DVT prophylaxis .correction of hypokalemia . RACHEL was removed . possible discharge in am - Problem Patient Problems: Patient Problems Acute appendicitis (Acute) K35.80 Pneumonia (Acute) J18.9 Ileus (Acute) K56.7 Peritonitis (Acute) K65.9
[2020-02-09] MEDS: LASIX IVP SCH (18:03)
[2020-02-09] MEDS ORDERED: NS 100 ML IV + SPIKE MINIBAG* 100 ML IV ONE (19:28)
[2020-02-09] MEDS: ZOCOR TAB 40 MG PO SCH (20:20)
[2020-02-10] MEDS: FLAGYL IV PREMIX 500 MG BAG 500 MG/100 ML BAG IV SCH ×3 (05:03→21:20)
[2020-02-10] MEDS: D5 1/2 NS 1000 ML 1,000 ML IV SCH ×3 (05:03→20:20)
[2020-02-10 05:30] LABS: BASOPHILS % (AUTO) 0.3 % (0.2-1.0); EOSINOPHILS # (AUTO) 0.1 x10^3/uL (0.0-0.2); EOSINOPHILS % (AUTO) 0.8 % (0.9-2.9); HEMATOCRIT 34.2 % (42.0-54.0); HEMOGLOBIN 11.6 g/dL (13.5-18.0); LYMPHOCYTES # (AUTO) 0.7 X10^3/uL (1.3-2.9); LYMPHOCYTES % (AUTO) 6.4 % (21.0-51.0); MEAN CORPUSCULAR HEMOGLOBIN 31.5 pg (27.0-34.0); MEAN CORPUSCULAR HGB CONC 33.9 g/dL (33.0-35.0); MEAN CORPUSCULAR VOLUME 92.9 fL (80.0-100.0); MEAN PLATELET VOLUME 7.5 fL (7.4-11.0); MONOCYTES # (AUTO) 1.3 x10^3/uL (0.3-0.8); MONOCYTES % (AUTO) 12.3 % (0.0-13.0); NEUTROPHILS # (AUTO) 8.5 x10^3/uL (2.2-4.8); NEUTROPHILS % (AUTO) 80.2 % (42.0-75.0); PLATELET COUNT 334 X10^3/uL (150.0-450.0); RED BLOOD COUNT 3.68 X10^6/uL (4.7-6.0); RED CELL DISTRIBUTION WIDTH 14.7 % (11.6-16.5); WHITE BLOOD COUNT 10.7 X10^3/uL (3.6-10.0)
[2020-02-10 05:47] LABS: ALBUMIN 2.4 g/dL (3.4-5.0); CALCIUM 8.7 mg/dL (8.5-10.1); CARBON DIOXIDE 25.1 mmol/L (21-32); CREATININE 1.71 mg/dL (0.70-1.30); TOTAL PROTEIN 7.3 g/dL (6.4-8.2)
--- NOTE | 2020-02-10 06:04 | RAD ---
HISTORYCHFSTUDYCHEST, 1 [id number] patient is rotated to the right. Accounting for this, the cardiac silhouette is stable. Pulmonary vascular congestion and interstitial and airspace opacities are unchanged. Stable right-sided pleural effusion. No pneumothorax.IMPRESSIONNo significant change from the prior.Electronically signed by: MOMO LUX (Feb 10, 2020 06:03:03)
[2020-02-10 06:08] LABS: PLATELET MORPHOLOGY COMMENT NORMAL (NORMAL)
[2020-02-10] MEDS: ZOSYN VIAL 3.375 GRAMS 3.375 G in NS 100 ML IV + SPIKE MINIBAG* 100 ML IV SCH ×3 (06:10→21:20)
[2020-02-10] MEDS ORDERED: ZESTRIL TAB 20 MG ONE ×2 (08:35→19:35)
[2020-02-10] MEDS: EFFEXOR TAB 75 MG (BID DOSING) PO SCH (08:48)
[2020-02-10] MEDS: PriLOSEC PO SCH (08:49)
[2020-02-10] MEDS: PEPCID 20 MG IV PREMIX* 20 MG/50 ML BAG IV SCH (08:49)
[2020-02-10] MEDS: NEURONTIN CAP 100 MG PO SCH ×2 (08:49→20:26)
[2020-02-10] MEDS: ZESTRIL TAB 20 MG PO SCH ×2 (08:49→20:27)
[2020-02-10] MEDS: NORVASC TAB 5 MG PO SCH (08:49)
[2020-02-10] MEDS: PROTONIX INJ 40 MG VIAL IVP SCH (08:50)
[2020-02-10] MEDS: LOVENOX INJ 40 MG SYR SC SCH (08:50)
[2020-02-10] MEDS: LASIX IVP SCH (08:50)
[2020-02-10] MEDS ORDERED: FLEET ENEMA ADULT PR ONE (09:20)
[2020-02-10] MEDS: XOPENEX 1.25 MG/3 ML NEBULE NEB SCH ×4 (09:20→20:48)
--- NOTE | 2020-02-10 10:01 | DR.PROGNOT ---
Hospital Progress Notes - Progress Note for Day of: Progress Note Date: 02/10/20 - Chief Complaint Chief Complaint: Post op day 7. feeling better today , tolerating diet , no vomiting , no BM today . denies abdominal pain . chest Xray showed no changes . - Past Medical Family Social History Past Med/Fam/Surg Hx: No changes since H&P Allergies: Allergies No Known Drug Allergies Allergy (Verified 02/03/20 14:02) - Review Of Systems ROS: No change since H&P - Vital Signs Vital Signs: Temperature 98.8 F Pulse Rate [Left Brachial] 90 Pulse Rate [Right Brachial] 90 Pulse Rate 90 Respiratory Rate 20 Blood Pressure [Left Arm] 142/73 Blood Pressure [Right Arm] 129/72 Blood Pressure 98/59 O2 Sat by Pulse Oximetry 95 - Physical Exam Oriented: Normal Eyes: Normal Ear: Normal Nose: Normal Throat: Normal Respiratory: Diminished Cardiovascular: Normal : Normal GI:Auscultation: Decreased GI:Palpation: Normal GI: Tenderness: Diffuse (distended abdomen with diffuse tenderness . BS hypoactive ), Mild Skin: Normal Musculoskeletal: Normal Psychiatric: Normal Mood Description: Calm Affect: Normal Speech Pattern: Clear, Appropriate, Delayed - Laboratory and Diagnostics Result Diagrams: 02/10/20 05:10 02/10/20 05:10 Labs: 02/04/20 09:05 Blood Blood Culture - Final 02/04/20 08:57 Blood Blood Culture - Final Laboratory WBC 10.7 X10^3/uL (3.6-10.0) H 02/10/20 05:10 RBC 3.68 X10^6/uL (4.7-6.0) L 02/10/20 05:10 Hgb 11.6 g/dL (13.5-18.0) L 02/10/20 05:10 Hct 34.2 % (42.0-54.0) L 02/10/20 05:10 MCV 92.9 fL (80.0-100.0) 02/10/20 05:10 MCH 31.5 pg (27.0-34.0) 02/10/20 05:10 MCHC 33.9 g/dL (33.0-35.0) 02/10/20 05:10 RDW 14.7 % (11.6-16.5) 02/10/20 05:10 Plt Count 334 X10^3/uL (150.0-450.0) 02/10/20 05:10 Plt Count Comment Adequate (ADEQUATE) 02/10/20 05:10 MPV 7.5 fL (7.4-11.0) 02/10/20 05:10 Neut % (Auto) 80.2 % (42.0-75.0) H 02/10/20 05:10 Lymph % (Auto) 6.4 % (21.0-51.0) L 02/10/20 05:10 [place] % (Auto) 12.3 % (0.0-13.0) 02/10/20 05:10 Eos % (Auto) 0.8 % (0.9-2.9) L 02/10/20 05:10 Baso % (Auto) 0.3 % (0.2-1.0) 02/10/20 05:10 Neut # (Auto) 8.5 x10^3/uL (2.2-4.8) H 02/10/20 05:10 Lymph # (Auto) 0.7 X10^3/uL (1.3-2.9) L 02/10/20 05:10 [place] # (Auto) 1.3 x10^3/uL (0.3-0.8) H 02/10/20 05:10 Eos # (Auto) 0.1 x10^3/uL (0.0-0.2) 02/10/20 05:10 Baso # (Auto) 0.0 X10^3/uL (0.0-0.1) 02/10/20 05:10 Absolute Nucleated RBC 0.0 /100WBC 02/10/20 05:10 Total Counted 100 02/10/20 05:10 Neutrophils % (Manual) 78 % (39-76) H 02/10/20 05:10 Band Neutrophils % 2 % (0-10) 02/06/20 05:40 Lymphocytes % (Manual) 7 % (13-43) L 02/10/20 05:10 Monocytes % (Manual) 15 % (4-9) H 02/10/20 05:10 Plt Morphology Comment Normal (NORMAL) 02/10/20 05:10 RBC Morphology Normal (NORMAL) 02/10/20 05:10 Sample Site Rr 02/08/20 11:38 ABG pH 7.470 (7.35-7.45) H 02/08/20 11:38 ABG pCO2 32.0 mmHg (35.0-45.0) L 02/08/20 11:38 ABG pO2 75.0 mmHg (80.0-100.0) L 02/08/20 11:38 ABG HCO3 23.3 mmol/L (22-26) 02/08/20 11:38 ABG O2 Saturation 96.0 % (90-100) 02/08/20 11:38 ABG Base Excess 0.2 mmol/L (-2.0-2.0) 02/08/20 11:38 Greg Test Pos 02/08/20 11:38 A-a Gradient 85.0 mmHg 02/08/20 11:38 FiO2 28.0 02/08/20 11:38 Blood Gas Comments Yoan well, [facility] 02/08/20 11:38 Sodium 134 mmol/L (136-145) L 02/10/20 05:10 Corrected Sodium 135 mmol/L (136-145) L 02/10/20 05:10 Potassium 3.8 mmol/L (3.5-5.1) 02/10/20 05:10 Chloride 100 mmol/L (98-107) 02/10/20 05:10 Carbon Dioxide 25.1 mmol/L (21-32) 02/10/20 05:10 BUN 13 mg/dL (7-18) 02/10/20 05:10 Creatinine 1.71 mg/dL (0.70-1.30) H 02/10/20 05:10 Est GFR (MDRD) Af Amer 51 (>60) L 02/10/20 05:10 Est GFR (MDRD) Non-Af 42 (>60) L 02/10/20 05:10 Glucose 134 mg/dL (65-99) H 02/10/20 05:10 Calcium 8.7 mg/dL (8.5-10.1) 02/10/20 05:10 Corrected Calcium 10.0 mg/dL (8.5-10.1) 02/10/20 05:10 Magnesium 1.8 mg/dL (1.7-2.9) 02/09/20 05:36 Total Bilirubin 0.30 mg/dL (0.2-1.0) 02/10/20 05:10 AST 41 Units/L (15-37) H 02/10/20 05:10 ALT 18 Units/L (12-78) 02/10/20 05:10 Alkaline Phosphatase 66 Units/L (46-116) 02/10/20 05:10 Total Protein 7.3 g/dL (6.4-8.2) 02/10/20 05:10 Albumin 2.4 g/dL (3.4-5.0) L 02/10/20 05:10 Globulin 4.9 g/dL (2.5-4.5) H 02/10/20 05:10 Albumin/Globulin Ratio 0.5 Ratio (1.1-2.1) L 02/10/20 05:10 Amylase 101 Units/L (25-115) 02/03/20 10:05 Lipase 76 Units/L (73-393) 02/03/20 10:05 Specimen Type Clean catch urine 02/03/20 16:45 Urine Color Yellow (YELLOW) 02/03/20 16:45 Urine Appearance Clear (CLEAR) 02/03/20 16:45 Urine pH 5.0 (5.0 - 8.0) 02/03/20 16:45 Ur Specific Keller 1.015 (1.000-1.030) 02/03/20 16:45 Urine Protein 2+ (NEGATIVE) 02/03/20 16:45 Urine Glucose (UA) Negative (NEGATIVE) 02/03/20 16:45 Urine Ketones Negative (NEGATIVE) 02/03/20 16:45 Urine Occult Blood 3+ (NEGATIVE) 02/03/20 16:45 Urine Nitrite Negative (NEGATIVE) 02/03/20 16:45 Urine Bilirubin Negative (NEGATIVE) 02/03/20 16:45 Urine Urobilinogen Normal (NORMAL) 02/03/20 16:45 Ur Leukocyte Esterase Negative (NEGATIVE) 02/03/20 16:45 Urine RBC 0-2 /HPF (0-3) 02/03/20 16:45 Urine WBC 0-2 /HPF (0-5) 02/03/20 16:45 Ur Squamous Epith Cells Rare /HPF (NEGATIVE) 02/03/20 16:45 Urine Bacteria Negative /HPF (NEGATIVE) 02/03/20 16:45 Ur Culture Indicated? No/not indicated 02/03/20 16:45 SARS-CoV-2 (PCR) Negative (NEGATIVE) 02/03/20 13:16 Tissue Pathology To follow 02/03/20 19:30 - Assessment and Plan 1: Post Op lap appendectomy for perforated appendicitis with peritonitis . improving ileus. lung congestion. CKD .HTN . old CVA. same IV ATB .DVT prophylaxis .correction of hypokalemia . to give fleet enema today . - Problem Patient Problems: Patient Problems Acute appendicitis (Acute) K35.80 Pneumonia (Acute) J18.9 Ileus (Acute) K56.7 Peritonitis (Acute) K65.9
[2020-02-10] MEDS: ZITHROMAX INJ 500 MG VIAL 500 MG in NS 250 ML IV 250 ML IV SCH (11:40)
[2020-02-10] MEDS ORDERED: FLEET ENEMA ADULT ONE (15:56)
[2020-02-10] MEDS: ZOCOR TAB 40 MG PO SCH (20:26)
[2020-02-11] MEDS: D5 1/2 NS 1000 ML 1,000 ML IV SCH (04:09)
--- NOTE | 2020-02-11 06:01 | RAD ---
HISTORYFollow-up pneumoniaSTUDYChest AP [id number]/15/2020FINDINGSPatient is rotated slightly to the right. The heart is enlarged. Mild pulmonary venous congestion is present. Perihilar interstitial infiltrates are present on the ri ght improved when compared to the prior examination. No residual airspace disease is present on the r ight. No definite right pleural effusion identified. The left lung is now clear.IMPRESSIONNo change c ardiomegaly with pulmonary venous congestionImproving right lung infiltratesElectronically signed by: BLANCA HEBERT (Feb 11, 2020 05:59:20)
[2020-02-11] MEDS: ZOSYN VIAL 3.375 GRAMS 3.375 G in NS 100 ML IV + SPIKE MINIBAG* 100 ML IV SCH (06:02)
[2020-02-11] MEDS: FLAGYL IV PREMIX 500 MG BAG 500 MG/100 ML BAG IV SCH (06:02)
[2020-02-11 06:11] LABS: BASOPHILS % (AUTO) 0.3 % (0.2-1.0); EOSINOPHILS # (AUTO) 0.1 x10^3/uL (0.0-0.2); EOSINOPHILS % (AUTO) 0.8 % (0.9-2.9); HEMATOCRIT 31.7 % (42.0-54.0); HEMOGLOBIN 10.8 g/dL (13.5-18.0); LYMPHOCYTES # (AUTO) 0.7 X10^3/uL (1.3-2.9); LYMPHOCYTES % (AUTO) 6.6 % (21.0-51.0); MEAN CORPUSCULAR HEMOGLOBIN 31.1 pg (27.0-34.0); MEAN CORPUSCULAR HGB CONC 33.9 g/dL (33.0-35.0); MEAN CORPUSCULAR VOLUME 91.7 fL (80.0-100.0); MEAN PLATELET VOLUME 7.5 fL (7.4-11.0); MONOCYTES # (AUTO) 1.1 x10^3/uL (0.3-0.8); MONOCYTES % (AUTO) 10.5 % (0.0-13.0); NEUTROPHILS # (AUTO) 8.9 x10^3/uL (2.2-4.8); NEUTROPHILS % (AUTO) 81.8 % (42.0-75.0); PLATELET COUNT 378 X10^3/uL (150.0-450.0); RED BLOOD COUNT 3.46 X10^6/uL (4.7-6.0); RED CELL DISTRIBUTION WIDTH 14.5 % (11.6-16.5); WHITE BLOOD COUNT 10.9 X10^3/uL (3.6-10.0)
[2020-02-11 06:31] LABS: ALBUMIN 2.2 g/dL (3.4-5.0); CALCIUM 8.4 mg/dL (8.5-10.1); CARBON DIOXIDE 27.5 mmol/L (21-32); COR CA(FOR HYPOALB) 9.8 mg/dL (8.5-10.1); CREATININE 1.74 mg/dL (0.70-1.30)
[2020-02-11 06:59] LABS: BAND NEUTROPHILS % 3 % (0-10)
[2020-02-11 07:00] LABS: PLATELET MORPHOLOGY COMMENT NORMAL (NORMAL)
[2020-02-11] MEDS ORDERED: ZESTRIL TAB 20 MG ONE (08:45)
[2020-02-11] MEDS: EFFEXOR TAB 75 MG (BID DOSING) PO SCH (08:57)
[2020-02-11] MEDS: NORVASC TAB 5 MG PO SCH (08:58)
[2020-02-11] MEDS: PriLOSEC PO SCH (08:58)
[2020-02-11] MEDS: NEURONTIN CAP 100 MG PO SCH (08:58)
[2020-02-11] MEDS: PEPCID 20 MG IV PREMIX* 20 MG/50 ML BAG IV SCH (08:59)
[2020-02-11] MEDS: PROTONIX INJ 40 MG VIAL IVP SCH (09:00)
[2020-02-11] MEDS: ZITHROMAX INJ 500 MG VIAL 500 MG in NS 250 ML IV 250 ML IV SCH (09:00)
[2020-02-11] MEDS: ZESTRIL TAB 20 MG PO SCH (09:00)
[2020-02-11] MEDS: LOVENOX INJ 40 MG SYR SC SCH (09:00)
[2020-02-11] MEDS: XOPENEX 1.25 MG/3 ML NEBULE NEB SCH ×2 (09:20→12:45)
[2020-02-11 12:12] VITALS: BP 114/72
== END 2020-02-11 14:50 | disposition home health service (06) | DRG 338 ==
LOC: MED/SURG 08:33 → ER 08:33 → OBSVTOIN 14:34 → MED/SURG 15:13
PROVIDERS: ADMIT Internal Medicine; ATTEND Internal Medicine
PROC: APPYLAP (ICD-10-PCS; 2020-02-03 18:45)
DX: K66.0 Peritoneal adhesions (postprocedural) (postinfection); J90 Pleural effusion, not elsewhere classified; J18.8 Other pneumonia, unspecified organism; K35.32 Acute appendicitis with perforation, localized peritonitis, and gangrene, without abscess; K56.7 Ileus, unspecified; K59.09 Other constipation; Z20.828 Contact with and (suspected) exposure to other viral communicable diseases; N18.9 Chronic kidney disease, unspecified; I12.9 Hypertensive chronic kidney disease with stage 1 through stage 4 chronic kidney disease, or unspecified chronic kidney disease; E78.2 Mixed hyperlipidemia; R94.4 Abnormal results of kidney function studies; K21.9 Gastro-esophageal reflux disease without esophagitis